=== PATIENT | male | born 1970 | race Caucasian/White ===

== ENCOUNTER 2016-10-21 14:57 | Inpatient (IN) | payer MEDICAID ==
[~2016-10-21] VITALS: Ht 170.2 cm; Wt 72.2 kg
[~2016-10-21 14:57] MED LIST: CHLO25CA9 PO; CYAN10005 PO; GABA100C8 PO; HYDR-3138 PO; HYDR-3144 PO; LIBRIUM PO; LISI-167 PO; LISI-170 PO; LISI2.5T PO; LISINOPRIL; LORA-446 PO; METHADONE; METO25TA35 PO; MORP60CA16 PO; MORPHINE PO; OXYC-229 PO; [UNRECOGNIZED DRUG - CODE] PO
[2016-10-21] MEDS ORDERED: LORazepam 2 MG/ML, 1ML ONE ×4 (15:40→19:15)
[2016-10-21] MEDS: LORazepam 2 MG/ML, 1ML IVPush PRN ×5 (15:44→22:02)
[2016-10-21] MEDS ORDERED: SODIUM CHLORIDE FLUSH 10ML SYR IVF ONE (16:00)
[2016-10-21] MEDS ORDERED: SODIUM CHLORIDE 0.9% 1,000ML IVBOLUS ONE (16:00)
[2016-10-21 16:20] LABS: ASPARTATE AMINO TRANSFERASE 25 U/L (15-37); BLOOD UREA NITROGEN 6 mg/dL (7-18)
[2016-10-21] MEDS ORDERED: SODIUM CHLORIDE FLUSH 10ML SYR IVF PRN (19:30)
[2016-10-21] MEDS ORDERED: LORazepam 2 MG/ML, 1ML IVPush PRN (19:30)
[2016-10-21] MEDS ORDERED: morphine SULFATE 10 MG/ML, 1ML IVPush PRN (20:00)
[2016-10-21] MEDS ORDERED: LORazepam 2 MG/ML, 1ML IV PRN ×2 (20:00)
[2016-10-21] MEDS ORDERED: POLYETHYLENE GLYCOL 17 GM PACKET PO PRN (20:00)
[2016-10-21] MEDS ORDERED: LORazepam 1MG TABLET PO PRN ×2 (20:00)
[2016-10-21] MEDS ORDERED: DOCUSATE 100 MG CAPSULE PO PRN (20:00)
[2016-10-21] MEDS: OXYcodone IR 5MG TABLET PO PRN (22:08)
[2016-10-21] MEDS: ENOXAPARIN 40 MG/0.4 ML SQ SCH (22:09)
[2016-10-21] MEDS: LORazepam 2 MG/ML, 1ML IV PRN (22:09)
[2016-10-21] MEDS: NICOTINE 14MG/24 HR PATCH.TD24 TD SCH (22:10)
[2016-10-21 22:27] VITALS: BP 123/75
[2016-10-21] MEDS: NS + 20MEQ KCL 1,000 ML IV SCH (22:59)
[2016-10-22] MEDS: LORazepam 2 MG/ML, 1ML IV PRN (01:24)
[2016-10-22] MEDS: ACETAMINOPHEN 325 MG TABLET PO PRN (01:27)
[2016-10-22 03:42] VITALS: BP 106/65
[2016-10-22] MEDS: NS + 20MEQ KCL 1,000 ML IV SCH (06:11)
[2016-10-22 07:49] VITALS: BP 119/84
[2016-10-22] MEDS: SENNA/DOCUSATE TABLET PO SCH (09:00)
[2016-10-22] MEDS: FOLIC ACID 1 MG TABLET PO SCH (09:19)
[2016-10-22] MEDS: LORazepam 0.5MG TABLET PO PRN ×3 (09:19→20:20)
[2016-10-22] MEDS: THIAMINE 100MG TABLET PO SCH (09:19)
[2016-10-22] MEDS: MULTIVITAMINS/MINERALS TABLET PO SCH (09:19)
[2016-10-22] MEDS: ONDANSETRON 2MG/ML, 2ML IVPush PRN (09:39)
[2016-10-22] MEDS: BACLOFEN 10 MG TABLET PO SCH ×2 (11:42→20:18)
[2016-10-22 13:59] VITALS: BP 110/85
[2016-10-22] MEDS: OXYcodone IR 5MG TABLET PO PRN (18:07)
[2016-10-22 20:00] VITALS: BP 125/73
[2016-10-22] MEDS ORDERED: LORazepam 1MG TABLET ONE (20:01)
[2016-10-22] MEDS: NICOTINE 14MG/24 HR PATCH.TD24 TD SCH (20:17)
[2016-10-22] MEDS: ENOXAPARIN 40 MG/0.4 ML SQ SCH (20:18)
[2016-10-23] MEDS: LORazepam 0.5MG TABLET PO PRN ×2 (01:02→09:48)
[2016-10-23 02:00] VITALS: BP 142/80
[2016-10-23 07:13] VITALS: BP 122/82
[2016-10-23] MEDS: THIAMINE 100MG TABLET PO SCH (08:08)
[2016-10-23] MEDS: ACETAMINOPHEN 325 MG TABLET PO PRN ×2 (08:08→20:05)
[2016-10-23] MEDS: FOLIC ACID 1 MG TABLET PO SCH (08:08)
[2016-10-23] MEDS: BACLOFEN 10 MG TABLET PO SCH ×2 (08:08→20:04)
[2016-10-23] MEDS: MULTIVITAMINS/MINERALS TABLET PO SCH (08:08)
[2016-10-23] MEDS: SENNA/DOCUSATE TABLET PO SCH (08:09)
[2016-10-23] MEDS: ONDANSETRON 2MG/ML, 2ML IVPush PRN (12:54)
[2016-10-23] MEDS: OXYcodone IR 5MG TABLET PO PRN ×4 (12:54→22:04)
[2016-10-23] MEDS ORDERED: NS + 20MEQ KCL 1,000 ML IV SCH (13:30)
[2016-10-23 16:07] VITALS: BP 120/75
[2016-10-23 20:00] VITALS: BP 130/62
[2016-10-23] MEDS: ENOXAPARIN 40 MG/0.4 ML SQ SCH (20:04)
[2016-10-23] MEDS: NICOTINE 14MG/24 HR PATCH.TD24 TD SCH (20:05)
[2016-10-23] MEDS: LORazepam 1MG TABLET PO PRN (20:13)
[2016-10-23] MEDS ORDERED: DIPHENHYDRAMINE 25 MG CAPSULE PO ONE (22:00)
[2016-10-24 02:00] VITALS: BP 147/79
[2016-10-24] MEDS: OXYcodone IR 5MG TABLET PO PRN ×2 (02:54→08:51)
[2016-10-24 08:53] VITALS: BP 130/74
[2016-10-24] MEDS: THIAMINE 100MG TABLET PO SCH (08:56)
[2016-10-24] MEDS: FOLIC ACID 1 MG TABLET PO SCH (08:56)
[2016-10-24] MEDS: BACLOFEN 10 MG TABLET PO SCH (08:56)
[2016-10-24] MEDS: MULTIVITAMINS/MINERALS TABLET PO SCH (08:56)
[2016-10-24] MEDS: SENNA/DOCUSATE TABLET PO SCH (08:57)
[2016-10-24] MEDS ORDERED: OXYC5TAB3 PO (11:22)
[2016-10-24] MEDS ORDERED: THIA100T6 PO (11:22)
[2016-10-24] MEDS ORDERED: LORA-446 PO (11:22)
[2016-10-24] MEDS ORDERED: FOLI-17 PO (11:22)
[2016-10-24] MEDS ORDERED: MULT-484 PO (11:22)
[2016-10-24 12:17] VITALS: BP 158/83
[2016-10-24] MEDS: LORazepam 1MG TABLET PO PRN (12:28)
== END 2016-10-24 13:05 | disposition home or self-care (01) | DRG 897 ==
LOC: ED 18:47 → EDIP 19:15 → 4WST 20:17
PROVIDERS: ADMIT Family Medicine
DX: F10.239 Alcohol dependence with withdrawal, unspecified (principal); F17.200 Nicotine dependence, unspecified, uncomplicated; I10 Essential (primary) hypertension; Z79.82 Long term (current) use of aspirin; I25.2 Old myocardial infarction; M79.7 Fibromyalgia
CPT/HCPCS: 36415; 71010; 80053; 80307; 85025; 87324; 93005; 93306; 96374; J1650; J2405; J3480; J2060; J7030; Q0163

== ENCOUNTER 2016-11-01 04:11 | Emergency (ER) | payer MEDICAID ==
[~2016-11-01] VITALS: Ht 170.2 cm; Wt 73.1 kg
[~2016-11-01 04:11] MED LIST changes: +FOLI-17 PO; +MULT-484 PO; +OXYC5TAB3 PO; +THIA100T6 PO
[2016-11-01 04:12] VITALS: BP 120/73
== END 2016-11-01 04:52 | disposition left against medical advice (07) ==
LOC: ED 04:46
DX: F10.10 Alcohol abuse, uncomplicated (principal); Z53.21 Procedure and treatment not carried out due to patient leaving prior to being seen by health care provider

== ENCOUNTER 2016-11-03 07:35 | Emergency (ER) | payer MEDICAID ==
[~2016-11-03] VITALS: Ht 170.2 cm; Wt 70.0 kg
[2016-11-03] MEDS ORDERED: ONDANSETRON ODT 4 MG PO ONE (08:30)
[2016-11-03] MEDS ORDERED: ACETAMINOPHEN 325 MG TABLET PO ONE (08:30)
[2016-11-03] MEDS ORDERED: ACETAMINOPHEN 325 MG TABLET ONE (09:08)
[2016-11-03] MEDS ORDERED: ONDANSETRON ODT 4 MG ONE (09:08)
[2016-11-03 09:42] VITALS: BP 110/71
== END 2016-11-03 09:44 | disposition home or self-care (01) ==
LOC: ED 08:42
DX: R42 Dizziness and giddiness (principal); R05 Cough; R51 Headache; R06.00 Dyspnea, unspecified; I11.9 Hypertensive heart disease without heart failure; I25.2 Old myocardial infarction; Z88.6 Allergy status to analgesic agent; F10.20 Alcohol dependence, uncomplicated
CPT/HCPCS: 70450; 99284; Q0162

== ENCOUNTER 2017-04-14 19:45 | Emergency (ER) | payer MEDICAID ==
[~2017-04-14] VITALS: Ht 170.2 cm; Wt 72.8 kg
[~2017-04-14 19:45] MED LIST changes: +GABA-826 PO; -GABA100C8 PO; -HYDR-3138 PO; -HYDR-3144 PO; +HYDR-3237 PO; +HYDR-3245 PO; -OXYC-229 PO; +OXYC-307 PO
[2017-04-14 19:51] VITALS: BP 116/72
== END 2017-04-14 21:53 | disposition home or self-care (01) ==
LOC: ED 21:47
DX: S61.411A Laceration without foreign body of right hand, initial encounter (principal); G89.11 Acute pain due to trauma; I10 Essential (primary) hypertension; I25.2 Old myocardial infarction; X58.XXXA Exposure to other specified factors, initial encounter; Y93.89 Activity, other specified; Y92.89 Other specified places as the place of occurrence of the external cause; Y99.8 Other external cause status
CPT/HCPCS: 12001

== ENCOUNTER 2017-07-06 03:45 | Emergency (ER) | payer MEDICAID ==
[~2017-07-06] VITALS: Ht 170.2 cm; Wt 67.3 kg
[2017-07-06] MEDS ORDERED: ALBUTEROL/IPRATROPIUM 2.5MG/0.5MG, 3 ML ONE (04:21)
[2017-07-06] MEDS ORDERED: ALBUTEROL/IPRATROPIUM 2.5MG/0.5MG, 3 ML NPPB ONE (04:30)
[2017-07-06 05:27] VITALS: BP 110/71
== END 2017-07-06 05:30 | disposition home or self-care (01) ==
LOC: ED 05:15
DX: J44.1 Chronic obstructive pulmonary disease with (acute) exacerbation (principal); J20.8 Acute bronchitis due to other specified organisms; I25.2 Old myocardial infarction; I10 Essential (primary) hypertension
CPT/HCPCS: 71046; 93005; 94640; 99284; J7620

== ENCOUNTER 2017-07-23 15:51 | Emergency (ER) | payer MEDICAID ==
[~2017-07-23] VITALS: Ht 170.2 cm; Wt 73.0 kg
[2017-07-23] MEDS ORDERED: SODIUM CHLORIDE 0.9% 1,000ML IVBOLUS ONE (16:00)
[2017-07-23] MEDS ORDERED: LORazepam 2 MG/ML, 1ML IVPush ONE (16:00)
[2017-07-23 16:37] LABS: BASOPHILS # (AUTO) 0.05 x10^3/uL (0-0.1); BASOPHILS % (AUTO) 1 % (0-1); EOSINOPHILS # (AUTO) 0.13 x10^3/uL (0-0.4); EOSINOPHILS % (AUTO) 2 % (1-7); LYMPHOCYTES # (AUTO) 1.71 x10^3/uL (1-3.4); LYMPHOCYTES % (AUTO) 25 % (22-44); MD NO; MEAN CORPUSCULAR HEMOGLOBIN 30.5 pg (27.5-34.5); MEAN CORPUSCULAR VOLUME 92.4 fL (81-97); MONOCYTES # (AUTO) 0.47 x10^3/uL (0.2-0.8); MONOCYTES % (AUTO) 7 % (2-9); NEUTROPHILS # (AUTO) 4.44 x10^3/uL (1.8-6.8); NEUTROPHILS % (AUTO) 65 % (42-75); PLATELET COUNT 393 x10^3/uL (130-400); RED BLOOD COUNT 4.48 x10^6/uL (4.38-5.82); RED CELL DISTRIBUTION WIDTH 14.7 % (9.4-14.8)
[2017-07-23 16:49] LABS: ALANINE AMINOTRANSFERASE 55 U/L (12-78); ALBUMIN 3.5 g/dL (3.4-5.0); ANION GAP 9 mmol/L (5-15); CALCIUM 8.2 mg/dL (8.5-10.1); CHLORIDE 108 mmol/L (98-107)
[2017-07-23 16:54] LABS: ALKALINE PHOSPHATASE 72 U/L (45-117); BILIRUBIN,TOTAL 0.6 mg/dL (0.2-1.0); CREATININE 0.55 mg/dL (0.7-1.3); TOTAL PROTEIN 6.9 g/dL (6.4-8.2)
[2017-07-23 17:19] LABS: AMPHETAMINE SCREEN, URINE Positive (Negative); BARBITURATE SCREEN, URINE Negative (Negative); BENZODIAZEPINE SCREEN, URINE Negative (Negative); CANNABINOID SCREEN, URINE Negative (Negative); COCAINE SCREEN, URINE Negative (Negative); METHADONE SCREEN, URINE Negative (Negative); OPIATE SCREEN, URINE Negative (Negative)
[2017-07-23 18:01] VITALS: BP 113/67
== END 2017-07-23 18:03 | disposition home or self-care (01) ==
LOC: ED 17:05
DX: F10.220 Alcohol dependence with intoxication, uncomplicated (principal); F15.20 Other stimulant dependence, uncomplicated; J44.9 Chronic obstructive pulmonary disease, unspecified; I25.2 Old myocardial infarction; I10 Essential (primary) hypertension; Z88.8 Allergy status to other drugs, medicaments and biological substances
CPT/HCPCS: 36415; 80053; 80307; 85025; 93970; 99285

== ENCOUNTER 2017-07-24 00:32 | Emergency (ER) | payer MEDICAID ==
[~2017-07-24] VITALS: Ht 172.7 cm; Wt 75.0 kg
[2017-07-24 00:33] VITALS: BP 114/80
[2017-07-24] MEDS ORDERED: ACETAMINOPHEN 325 MG TABLET ONE (03:04)
[2017-07-24] MEDS ORDERED: ACETAMINOPHEN 325 MG TABLET PO ONE (03:30)
== END 2017-07-24 03:18 | disposition home or self-care (01) ==
LOC: ED 01:34
DX: G89.29 Other chronic pain (principal); M79.661 Pain in right lower leg; M79.662 Pain in left lower leg; F15.10 Other stimulant abuse, uncomplicated; F17.200 Nicotine dependence, unspecified, uncomplicated; I10 Essential (primary) hypertension; J44.9 Chronic obstructive pulmonary disease, unspecified; I25.2 Old myocardial infarction
CPT/HCPCS: 99283

== ENCOUNTER 2017-07-24 14:36 | Emergency (ER) | payer MEDICAID ==
[~2017-07-24] VITALS: Ht 170.2 cm; Wt 73.0 kg
[2017-07-24] MEDS ORDERED: THIAMINE 100MG TABLET PO ONE (15:00)
[2017-07-24] MEDS ORDERED: PLEASE ENTER HEIGHT AND WEIGHT MC SCH (15:00)
[2017-07-24] MEDS ORDERED: LORazepam 1MG TABLET PO ONE (17:30)
[2017-07-24 18:15] VITALS: BP 106/70
[2017-07-24] MEDS ORDERED: CHLORDIAZEPOXIDE 25 MG CAPSULE ONE (18:25)
[2017-07-24] MEDS ORDERED: CHLORDIAZEPOXIDE 25 MG CAPSULE PO ONE (18:30)
== END 2017-07-24 19:09 | disposition home or self-care (01) ==
LOC: ED 17:48
DX: F10.220 Alcohol dependence with intoxication, uncomplicated (principal); I25.2 Old myocardial infarction; I10 Essential (primary) hypertension; J44.9 Chronic obstructive pulmonary disease, unspecified
CPT/HCPCS: 93005; 99284

== ENCOUNTER 2017-07-26 18:18 | Emergency (ER) | payer MEDICAID ==
[~2017-07-26] VITALS: Ht 172.7 cm; Wt 80.0 kg
[2017-07-26 18:29] VITALS: BP 140/82
[2017-07-26] MEDS ORDERED: KETOROLAC 30 MG/1 ML ONE (18:33)
[2017-07-26] MEDS ORDERED: KETOROLAC 30 MG/1 ML IM ONE (19:00)
== END 2017-07-26 18:48 | disposition home or self-care (01) ==
LOC: ED 18:42
DX: F10.129 Alcohol abuse with intoxication, unspecified (principal); M79.605 Pain in left leg; M79.604 Pain in right leg; J44.9 Chronic obstructive pulmonary disease, unspecified; I10 Essential (primary) hypertension; I25.2 Old myocardial infarction
CPT/HCPCS: 96372; 99283; J1885

== ENCOUNTER 2018-03-28 21:28 | Emergency (ER) | payer MEDICAID, OTHER ==
[~2018-03-28] VITALS: Ht 170.2 cm; Wt 68.2 kg
[~2018-03-28 21:28] MED LIST changes: -THIA100T6 PO; +THIA100T67 PO
[2018-03-28] MEDS ORDERED: IBUPROFEN 200 MG TABLET PO ONE (22:00)
[2018-03-28] MEDS ORDERED: IBUPROFEN 200 MG TABLET ONE (22:11)
[2018-03-28 22:23] VITALS: BP 103/65
[2018-03-28] MEDS ORDERED: ONDANSETRON ODT 4 MG ONE (22:34)
[2018-03-28] MEDS ORDERED: ONDANSETRON ODT 4 MG PO ONE (23:00)
== END 2018-03-28 22:49 | disposition home or self-care (01) ==
LOC: ED 22:40
DX: S06.0X0A Concussion without loss of consciousness, initial encounter (principal); F10.220 Alcohol dependence with intoxication, uncomplicated; F10.121 Alcohol abuse with intoxication delirium; J44.9 Chronic obstructive pulmonary disease, unspecified; I25.2 Old myocardial infarction; I10 Essential (primary) hypertension; X58.XXXA Exposure to other specified factors, initial encounter; Y93.89 Activity, other specified; Y92.89 Other specified places as the place of occurrence of the external cause; Y99.8 Other external cause status
CPT/HCPCS: 70450; 99284; Q0162

== ENCOUNTER 2018-03-31 12:25 | Emergency (ER) | payer MEDICAID, OTHER ==
[~2018-03-31] VITALS: Ht 170.2 cm; Wt 70.0 kg
[2018-03-31] MEDS ORDERED: GABA300C10 PO (12:38)
[2018-03-31] MEDS ORDERED: TRAM50TA2 PO (12:38)
[2018-03-31 12:50] VITALS: BP 112/68
[2018-03-31] MEDS ORDERED: SODIUM CHLORIDE FLUSH 10ML SYR IVF ONE (13:00)
[2018-03-31 13:21] LABS: MICROSCOPIC NOT IND
[2018-03-31 13:22] LABS: CULTURE INDICATED? NO
[2018-03-31 13:27] LABS: MEAN CORPUSCULAR HEMOGLOBIN 33.9 pg (27.5-34.5); MEAN CORPUSCULAR HGB CONC 34.4 g/dL (33.2-36.2); MEAN CORPUSCULAR VOLUME 98.6 fL (81-97); RED BLOOD COUNT 3.77 x10^6/uL (4.38-5.82); RED CELL DISTRIBUTION WIDTH 16.9 % (9.4-14.8)
[2018-03-31 13:28] LABS: MD YES; MEAN PLATELET VOLUME 7.1 fL (7.4-10.4); PLATELET COUNT 559 x10^3/uL (130-400)
[2018-03-31 13:31] LABS: LYMPH#(MANUAL) 1.38 x10^3/uL (1-3.4); LYMPHS% (MANUAL) 26 % (22-44); MONOS#(MANUAL) 1.01 x10^3/uL (0.3-2.7); MONOS% (MANUAL) 19 % (2-9); SEG#(MANUAL) 2.92 x10^3/uL (1.8-6.8); SEGS% (MANUAL) 55 % (42-75)
[2018-03-31 13:32] LABS: ALANINE AMINOTRANSFERASE 58 U/L (12-78); ALBUMIN 3.5 g/dL (3.4-5.0); ANION GAP 7 mmol/L (5-15); ANISOCYTOSIS 1+; CALCIUM 8.6 mg/dL (8.5-10.1); CHLORIDE 104 mmol/L (98-107); CREATININE 0.73 mg/dL (0.7-1.3)
[2018-03-31 13:33] LABS: AMPHETAMINE SCREEN, URINE Negative (Negative); BARBITURATE SCREEN, URINE Positive (Negative); BENZODIAZEPINE SCREEN, URINE Negative (Negative); CANNABINOID SCREEN, URINE Negative (Negative); COCAINE SCREEN, URINE Negative (Negative); METHADONE SCREEN, URINE Negative (Negative); OPIATE SCREEN, URINE Negative (Negative)
[2018-03-31 13:33] LABS: <PLATELET ESTIMATE> INCREASED; <PLT MORPHOLOGY> NORMAL PLT MORPH
[2018-03-31 13:35] LABS: ALKALINE PHOSPHATASE 88 U/L (45-117); BILIRUBIN,TOTAL 0.2 mg/dL (0.2-1.0); TOTAL PROTEIN 7.2 g/dL (6.4-8.2)
== END 2018-03-31 13:58 | disposition left against medical advice (07) ==
LOC: ED 13:52
DX: F10.129 Alcohol abuse with intoxication, unspecified (principal); G44.319 Acute post-traumatic headache, not intractable
CPT/HCPCS: 36415; 80053; 80307; 81003; 85025; 99285

== ENCOUNTER 2018-04-08 23:10 | Emergency (ER) | payer MEDICAID ==
[~2018-04-08] VITALS: Ht 170.2 cm; Wt 67.8 kg
[~2018-04-08 23:10] MED LIST changes: +GABA300C10 PO; +TRAM50TA2 PO
[2018-04-09 03:21] VITALS: BP 139/81
== END 2018-04-09 03:23 | disposition home or self-care (01) ==
LOC: ED 23:34
DX: F10.229 Alcohol dependence with intoxication, unspecified (principal); I25.2 Old myocardial infarction; F32.9 Major depressive disorder, single episode, unspecified; I11.9 Hypertensive heart disease without heart failure; I51.9 Heart disease, unspecified; J44.9 Chronic obstructive pulmonary disease, unspecified; Y90.9 Presence of alcohol in blood, level not specified
CPT/HCPCS: 99283

== ENCOUNTER 2018-04-09 20:31 | Emergency (ER) | payer MEDICAID ==
[~2018-04-09] VITALS: Ht 177.8 cm; Wt 60.0 kg
[2018-04-09 20:50] LABS: BASOPHILS # (AUTO) 0.12 x10^3/uL (0-0.1); BASOPHILS % (AUTO) 2 % (0-1); EOSINOPHILS # (AUTO) 0.06 x10^3/uL (0-0.4); EOSINOPHILS % (AUTO) 1 % (1-7); LYMPHOCYTES # (AUTO) 2.49 x10^3/uL (1-3.4); LYMPHOCYTES % (AUTO) 37 % (22-44); MD NO; MEAN CORPUSCULAR HEMOGLOBIN 33.4 pg (27.5-34.5); MEAN CORPUSCULAR HGB CONC 34.3 g/dL (33.2-36.2); MEAN CORPUSCULAR VOLUME 97.5 fL (81-97); MEAN PLATELET VOLUME 6.8 fL (7.4-10.4); MONOCYTES # (AUTO) 0.67 x10^3/uL (0.2-0.8); MONOCYTES % (AUTO) 10 % (2-9); NEUTROPHILS # (AUTO) 3.42 x10^3/uL (1.8-6.8); NEUTROPHILS % (AUTO) 51 % (42-75); PLATELET COUNT 573 x10^3/uL (130-400); RED BLOOD COUNT 3.85 x10^6/uL (4.38-5.82); RED CELL DISTRIBUTION WIDTH 16.5 % (9.4-14.8)
[2018-04-09 21:00] LABS: ALBUMIN 3.4 g/dL (3.4-5.0); ANION GAP 14 mmol/L (5-15); CALCIUM 8.2 mg/dL (8.5-10.1); CHLORIDE 104 mmol/L (98-107)
[2018-04-09 21:02] LABS: SALICYLATE LEVEL < 1.7 mg/dL (2.8-20.0)
[2018-04-09 21:03] LABS: ALANINE AMINOTRANSFERASE 54 U/L (12-78); ALKALINE PHOSPHATASE 67 U/L (45-117); BILIRUBIN,TOTAL 0.1 mg/dL (0.2-1.0); TOTAL PROTEIN 6.9 g/dL (6.4-8.2)
[2018-04-09 21:06] LABS: ACETAMINOPHEN < 2 mcg/mL (10-30)
[2018-04-09 21:26] LABS: AMPHETAMINE SCREEN, URINE Negative (Negative); BARBITURATE SCREEN, URINE Positive (Negative); BENZODIAZEPINE SCREEN, URINE Positive (Negative); CANNABINOID SCREEN, URINE Negative (Negative); COCAINE SCREEN, URINE Negative (Negative); METHADONE SCREEN, URINE Negative (Negative); OPIATE SCREEN, URINE Negative (Negative)
[2018-04-10 02:04] VITALS: BP 134/70
== END 2018-04-10 02:24 | disposition home or self-care (01) ==
LOC: ED 21:45
DX: F10.120 Alcohol abuse with intoxication, uncomplicated (principal); F14.10 Cocaine abuse, uncomplicated; Z00.00 Encounter for general adult medical examination without abnormal findings; J44.9 Chronic obstructive pulmonary disease, unspecified; I25.2 Old myocardial infarction; I10 Essential (primary) hypertension
CPT/HCPCS: 36415; 80053; 80307; 80329; 85025; 99284; G0480

== ENCOUNTER 2018-04-11 03:13 | Emergency (ER) | payer MEDICAID ==
[~2018-04-11] VITALS: Ht 170.2 cm; Wt 66.9 kg
[2018-04-11 03:17] VITALS: BP 117/73
== END 2018-04-11 03:42 | disposition home or self-care (01) ==
LOC: ED 03:37
DX: F10.220 Alcohol dependence with intoxication, uncomplicated (principal); I10 Essential (primary) hypertension; I25.2 Old myocardial infarction; J44.9 Chronic obstructive pulmonary disease, unspecified; Z72.9 Problem related to lifestyle, unspecified; F17.200 Nicotine dependence, unspecified, uncomplicated
CPT/HCPCS: 99281

== ENCOUNTER 2018-04-12 19:52 | Emergency (ER) | payer MEDICAID ==
[~2018-04-12] VITALS: Ht 170.2 cm; Wt 71.0 kg
[2018-04-12 19:56] VITALS: BP 130/82
== END 2018-04-12 21:00 | disposition home or self-care (01) ==
LOC: ED 20:54
DX: F15.10 Other stimulant abuse, uncomplicated (principal); F10.129 Alcohol abuse with intoxication, unspecified; J44.9 Chronic obstructive pulmonary disease, unspecified; I25.2 Old myocardial infarction
CPT/HCPCS: 99283

== ENCOUNTER 2018-04-19 23:53 | Emergency (ER) | payer MEDICAID ==
[~2018-04-19] VITALS: Ht 170.2 cm; Wt 71.8 kg
[2018-04-20 00:13] VITALS: BP 137/82
[2018-04-20] MEDS ORDERED: ONDANSETRON 2MG/ML, 2ML IVPush ONE (00:30)
[2018-04-20] MEDS ORDERED: SODIUM CHLORIDE 0.9% 1,000ML IVBOLUS ONE (00:30)
[2018-04-20 00:51] LABS: BASOPHILS # (AUTO) 0.12 x10^3/uL (0-0.1); BASOPHILS % (AUTO) 2 % (0-1); EOSINOPHILS # (AUTO) 0.15 x10^3/uL (0-0.4); EOSINOPHILS % (AUTO) 2 % (1-7); LYMPHOCYTES # (AUTO) 2.22 x10^3/uL (1-3.4); LYMPHOCYTES % (AUTO) 27 % (22-44); MD NO; MEAN CORPUSCULAR HEMOGLOBIN 33.3 pg (27.5-34.5); MEAN CORPUSCULAR HGB CONC 34.1 g/dL (33.2-36.2); MEAN CORPUSCULAR VOLUME 97.7 fL (81-97); MEAN PLATELET VOLUME 7.4 fL (7.4-10.4); MONOCYTES # (AUTO) 0.87 x10^3/uL (0.2-0.8); MONOCYTES % (AUTO) 11 % (2-9); NEUTROPHILS # (AUTO) 4.74 x10^3/uL (1.8-6.8); NEUTROPHILS % (AUTO) 59 % (42-75); PLATELET COUNT 328 x10^3/uL (130-400); RED BLOOD COUNT 3.96 x10^6/uL (4.38-5.82); RED CELL DISTRIBUTION WIDTH 16.1 % (9.4-14.8)
[2018-04-20 01:04] LABS: ALANINE AMINOTRANSFERASE 31 U/L (12-78); ALBUMIN 3.7 g/dL (3.4-5.0); ANION GAP 9 mmol/L (5-15); CALCIUM 8.7 mg/dL (8.5-10.1); CHLORIDE 106 mmol/L (98-107); CREATININE 0.71 mg/dL (0.7-1.3)
[2018-04-20 01:06] LABS: ALKALINE PHOSPHATASE 61 U/L (45-117); BILIRUBIN,TOTAL 0.1 mg/dL (0.2-1.0); TOTAL PROTEIN 7.2 g/dL (6.4-8.2)
[2018-04-20 01:07] LABS: TROPONIN I < 0.015 ng/mL (0.000-0.045)
[2018-04-20] MEDS ORDERED: ONDANSETRON 2MG/ML, 2ML ONE (01:55)
== END 2018-04-20 02:29 | disposition home or self-care (01) ==
LOC: ED 04-20 00:22
DX: R10.13 Epigastric pain (principal); I10 Essential (primary) hypertension; J44.9 Chronic obstructive pulmonary disease, unspecified; I25.2 Old myocardial infarction; F17.200 Nicotine dependence, unspecified, uncomplicated
CPT/HCPCS: 36415; 71045; 80053; 83690; 84484; 85025; 96374; 99285; J2405; J7030

== ENCOUNTER 2018-04-28 08:33 | Emergency (ER) | payer MEDICAID ==
[~2018-04-28] VITALS: Ht 170.2 cm; Wt 73.0 kg
[2018-04-28] MEDS ORDERED: ONDANSETRON ODT 4 MG ONE (10:08)
[2018-04-28 10:23] VITALS: BP 115/68
[2018-04-28] MEDS ORDERED: ONDANSETRON ODT 4 MG PO ONE (10:30)
== END 2018-04-28 10:25 | disposition home or self-care (01) ==
LOC: ED 09:50
DX: S16.1XXA Strain of muscle, fascia and tendon at neck level, initial encounter (principal); S09.90XA Unspecified injury of head, initial encounter; J44.9 Chronic obstructive pulmonary disease, unspecified; I25.2 Old myocardial infarction; I10 Essential (primary) hypertension; F32.9 Major depressive disorder, single episode, unspecified; Y08.89XA Assault by other specified means, initial encounter; Y93.89 Activity, other specified; Y92.410 Unspecified street and highway as the place of occurrence of the external cause; Y99.8 Other external cause status
CPT/HCPCS: 70450; 72125; 99284; Q0162

== ENCOUNTER 2018-05-04 07:56 | Emergency (ER) | payer MEDICAID ==
[~2018-05-04] VITALS: Ht 172.7 cm; Wt 68.8 kg
[2018-05-04 09:29] VITALS: BP 113/71
[2018-05-04] MEDS ORDERED: ONDANSETRON ODT 4 MG ONE (09:56)
[2018-05-04] MEDS ORDERED: ONDANSETRON ODT 4 MG PO ONE (10:00)
== END 2018-05-04 10:01 | disposition home or self-care (01) ==
LOC: ED 08:25
DX: S09.90XA Unspecified injury of head, initial encounter (principal); I10 Essential (primary) hypertension; I25.2 Old myocardial infarction; L44.9 Papulosquamous disorder, unspecified; X58.XXXA Exposure to other specified factors, initial encounter; Y93.89 Activity, other specified; Y92.89 Other specified places as the place of occurrence of the external cause; Y99.8 Other external cause status
CPT/HCPCS: 70450; 99284; Q0162

== ENCOUNTER 2018-05-05 07:45 | Inpatient (IN) | payer MEDICAID ==
[~2018-05-05] VITALS: Ht 172.7 cm; Wt 76.3 kg
[2018-05-05] MEDS ORDERED: SODIUM CHLORIDE 0.9% 1,000 ML IV ONE ×2 (08:02→11:34)
[2018-05-05] MEDS ORDERED: ONDANSETRON 2MG/ML, 2ML ONE ×2 (08:17→08:59)
[2018-05-05] MEDS ORDERED: LORazepam 2 MG/ML, 1ML ONE ×3 (08:17→11:18)
[2018-05-05] MEDS: LORazepam 2 MG/ML, 1ML IVPush PRN ×3 (08:23→11:22)
[2018-05-05 08:30] LABS: BASOPHILS # (AUTO) 0.02 x10^3/uL (0-0.1); BASOPHILS % (AUTO) 0 % (0-1); EOSINOPHILS # (AUTO) 0.02 x10^3/uL (0-0.4); EOSINOPHILS % (AUTO) 0 % (1-7); LYMPHOCYTES # (AUTO) 0.64 x10^3/uL (1-3.4); LYMPHOCYTES % (AUTO) 6 % (22-44); MD NO; MEAN CORPUSCULAR HEMOGLOBIN 32.2 pg (27.5-34.5); MEAN CORPUSCULAR HGB CONC 33.5 g/dL (33.2-36.2); MEAN CORPUSCULAR VOLUME 96.3 fL (81-97); MEAN PLATELET VOLUME 7.6 fL (7.4-10.4); MONOCYTES % (AUTO) 6 % (2-9); NEUTROPHILS # (AUTO) 9.84 x10^3/uL (1.8-6.8); NEUTROPHILS % (AUTO) 88 % (42-75); PLATELET COUNT 372 x10^3/uL (130-400); RED CELL DISTRIBUTION WIDTH 16.5 % (9.4-14.8)
[2018-05-05] MEDS ORDERED: ONDANSETRON 2MG/ML, 2ML IVP ONE (08:30)
[2018-05-05] MEDS ORDERED: ONDANSETRON 2MG/ML, 2ML IVPush ONE ×2 (08:30→09:00)
[2018-05-05] MEDS ORDERED: SODIUM CHLORIDE FLUSH 10ML SYR IVF ONE (08:30)
[2018-05-05] MEDS ORDERED: SODIUM CHLORIDE 0.9% 1,000ML IVBOLUS ONE (08:30)
[2018-05-05 08:40] LABS: RAPID INFLUENZA A Negative (Negative); RAPID INFLUENZA B Negative (Negative)
[2018-05-05 08:41] LABS: ALANINE AMINOTRANSFERASE 72 U/L (12-78); ALBUMIN 3.9 g/dL (3.4-5.0); ANION GAP 9 mmol/L (5-15); CALCIUM 8.6 mg/dL (8.5-10.1); CHLORIDE 106 mmol/L (98-107); CREATININE 0.71 mg/dL (0.7-1.3)
[2018-05-05 08:46] LABS: ALKALINE PHOSPHATASE 93 U/L (45-117); BILIRUBIN,TOTAL 0.9 mg/dL (0.2-1.0); TOTAL PROTEIN 7.2 g/dL (6.4-8.2); TROPONIN I < 0.015 ng/mL (0.000-0.045)
[2018-05-05 10:49] LABS: MICROSCOPIC NOT IND
[2018-05-05 10:53] LABS: CULTURE INDICATED? NO
[2018-05-05 11:02] LABS: AMPHETAMINE SCREEN, URINE Negative (Negative); BARBITURATE SCREEN, URINE Positive (Negative); BENZODIAZEPINE SCREEN, URINE Positive (Negative); CANNABINOID SCREEN, URINE Negative (Negative); COCAINE SCREEN, URINE Negative (Negative); METHADONE SCREEN, URINE Negative (Negative); OPIATE SCREEN, URINE Negative (Negative)
[2018-05-05] MEDS ORDERED: SODIUM CHLORIDE FLUSH 10ML SYR IVF PRN (12:00)
[2018-05-05 12:30] VITALS: BP 116/70
[2018-05-05] MEDS ORDERED: LABETALOL 5MG/ML, 20ML IVPush PRN (12:30)
[2018-05-05] MEDS ORDERED: LORazepam 1MG TABLET PO PRN ×2 (12:30)
[2018-05-05] MEDS ORDERED: hydrALAzine 20 MG/ML, 1ML IVPush PRN (12:30)
[2018-05-05] MEDS: FOLIC ACID 1 MG TABLET PO SCH (12:30)
[2018-05-05] MEDS ORDERED: ENALAPRILAT 1.25 MG/ML, 2ML IVPush PRN (12:30)
[2018-05-05] MEDS ORDERED: BISACODYL 10 MG SUPP PR PRN (12:30)
[2018-05-05] MEDS ORDERED: POLYETHYLENE GLYCOL 17 GM PACKET PO PRN (12:30)
[2018-05-05] MEDS ORDERED: DOCUSATE 100 MG CAPSULE PO PRN (12:30)
[2018-05-05] MEDS: THIAMINE 100MG TABLET PO SCH (13:05)
[2018-05-05] MEDS: MULTIVITAMIN 1 TABLET PO SCH (13:05)
[2018-05-05] MEDS: NICOTINE 21 MG/24 HR PATCH.TD24 TD SCH (13:05)
[2018-05-05] MEDS: LORazepam 1MG TABLET PO PRN ×4 (13:05→21:02)
[2018-05-05 13:27] LABS: INTERNATIONAL NORMALIZED RATIO 0.99 (0.93-1.1); PROTHROMBIN TIME 10.5 Seconds (9.6-11.5)
[2018-05-05 13:34] LABS: FREE T4 (FREE THYROXINE) 0.81 ng/dL (0.76-1.46); TROPONIN I < 0.015 ng/mL (0.000-0.045)
[2018-05-05 14:00] LABS: CLOSTRIDIUM DIFFICILE ANTIGEN NEGATIVE; CLOSTRIDIUM DIFFICILE TOXIN NEGATIVE (Negative)
[2018-05-05] MEDS ORDERED: CHLORDIAZEPOXIDE 10 MG CAPSULE ONE (14:25)
[2018-05-05] MEDS: CHLORDIAZEPOXIDE 10 MG CAPSULE PO SCH ×3 (14:29→20:06)
[2018-05-05] MEDS: AZITHROMYCIN 500 MG in SODIUM CHLORIDE 0.9% 250 ML IV SCH (14:29)
[2018-05-05] MEDS: NS + 20MEQ KCL 1,000 ML IV SCH (14:29)
[2018-05-05] MEDS ORDERED: CHLORDIAZEPOXIDE 10 MG CAPSULE PO SCH (16:00)
[2018-05-05] MEDS: GABAPENTIN 300 MG CAPSULE PO SCH ×2 (16:01→20:06)
[2018-05-05 18:07] LABS: TROPONIN I < 0.015 ng/mL (0.000-0.045)
[2018-05-05 20:00] VITALS: BP 123/71
[2018-05-05 20:01] VITALS: BP 111/72
[2018-05-05 20:02] VITALS: BP 102/73
[2018-05-05] MEDS: PANTOPRAZOLE 40 MG IV IVPush SCH (20:05)
[2018-05-05] MEDS: ACETAMINOPHEN 325 MG TABLET PO PRN (20:06)
[2018-05-05] MEDS: SODIUM CHLORIDE NASAL SPRAY 45ML BOTTLE NAS PRN (20:07)
[2018-05-05] MEDS ORDERED: FAMOTIDINE 20 MG/2 ML IVPush SCH (21:00)
[2018-05-05] MEDS: GUAIFENESIN/DM 200-20MG, 10ML UDC PO PRN (21:02)
[2018-05-05] MEDS: ONDANSETRON ODT 4 MG PO PRN (21:02)
[2018-05-06 00:25] VITALS: BP 121/67
[2018-05-06] MEDS: NS + 20MEQ KCL 1,000 ML IV SCH ×3 (00:27→21:15)
[2018-05-06] MEDS: ONDANSETRON ODT 4 MG PO PRN (01:29)
[2018-05-06] MEDS: ACETAMINOPHEN 325 MG TABLET PO PRN ×5 (01:29→20:51)
[2018-05-06] MEDS: LORazepam 1MG TABLET PO PRN ×6 (01:29→21:16)
[2018-05-06] MEDS: SODIUM CHLORIDE NASAL SPRAY 45ML BOTTLE NAS PRN ×5 (01:30→20:50)
[2018-05-06] MEDS: GUAIFENESIN/DM 200-20MG, 10ML UDC PO PRN ×3 (03:55→23:08)
[2018-05-06 04:49] LABS: BASOPHILS # (AUTO) 0.03 x10^3/uL (0-0.1); BASOPHILS % (AUTO) 0 % (0-1); EOSINOPHILS # (AUTO) 0.16 x10^3/uL (0-0.4); EOSINOPHILS % (AUTO) 2 % (1-7); LYMPHOCYTES # (AUTO) 1.47 x10^3/uL (1-3.4); LYMPHOCYTES % (AUTO) 18 % (22-44); MD NO; MEAN CORPUSCULAR HEMOGLOBIN 32.7 pg (27.5-34.5); MEAN CORPUSCULAR HGB CONC 33.5 g/dL (33.2-36.2); MEAN CORPUSCULAR VOLUME 97.7 fL (81-97); MEAN PLATELET VOLUME 7.9 fL (7.4-10.4); MONOCYTES # (AUTO) 0.71 x10^3/uL (0.2-0.8); MONOCYTES % (AUTO) 8 % (2-9); NEUTROPHILS # (AUTO) 5.98 x10^3/uL (1.8-6.8); NEUTROPHILS % (AUTO) 72 % (42-75); PLATELET COUNT 310 x10^3/uL (130-400); RED BLOOD COUNT 3.77 x10^6/uL (4.38-5.82)
[2018-05-06 04:57] LABS: ALANINE AMINOTRANSFERASE 57 U/L (12-78); ANION GAP 8 mmol/L (5-15); CHLORIDE 113 mmol/L (98-107)
[2018-05-06 04:59] LABS: ALKALINE PHOSPHATASE 78 U/L (45-117); BILIRUBIN,TOTAL 0.7 mg/dL (0.2-1.0); TOTAL PROTEIN 6.2 g/dL (6.4-8.2)
[2018-05-06 07:29] VITALS: BP 101/62
[2018-05-06] MEDS: CHLORDIAZEPOXIDE 25 MG CAPSULE PO SCH ×3 (09:21→20:49)
[2018-05-06] MEDS: FOLIC ACID 1 MG TABLET PO SCH (09:21)
[2018-05-06] MEDS: MULTIVITAMIN 1 TABLET PO SCH (09:21)
[2018-05-06] MEDS: GABAPENTIN 300 MG CAPSULE PO SCH ×3 (09:21→20:49)
[2018-05-06] MEDS: THIAMINE 100MG TABLET PO SCH (09:21)
[2018-05-06] MEDS: PANTOPRAZOLE 40 MG IV IVPush SCH ×2 (09:22→20:49)
[2018-05-06 12:20] VITALS: BP 121/76
[2018-05-06 12:26] VITALS: BP 117/73
[2018-05-06 12:29] VITALS: BP 123/78
[2018-05-06] MEDS: NICOTINE 21 MG/24 HR PATCH.TD24 TD SCH (13:03)
[2018-05-06] MEDS: AZITHROMYCIN 500 MG in SODIUM CHLORIDE 0.9% 250 ML IV SCH (13:03)
[2018-05-06] MEDS ORDERED: MAGNESIUM SULFATE 1 GM in SODIUM CHLORIDE 0.9% 50 ML IV ONE (13:30)
[2018-05-06 15:31] LABS: OCCULT BLOOD NEGATIVE (NEGATIVE)
[2018-05-06 17:15] LABS: STOOL FOR LEUKOCYTES NONE SEEN (NEGATIVE)
[2018-05-06 20:00] VITALS: BP 144/84
[2018-05-07 02:00] VITALS: BP 144/85
[2018-05-07] MEDS: NS + 20MEQ KCL 1,000 ML IV SCH ×2 (03:56→14:26)
[2018-05-07 04:12] LABS: ALBUMIN 2.9 g/dL (3.4-5.0); ANION GAP 5 mmol/L (5-15); BASOPHILS # (AUTO) 0.06 x10^3/uL (0-0.1); BASOPHILS % (AUTO) 1 % (0-1); CALCIUM 7.8 mg/dL (8.5-10.1); CHLORIDE 113 mmol/L (98-107); EOSINOPHILS # (AUTO) 0.17 x10^3/uL (0-0.4); EOSINOPHILS % (AUTO) 2 % (1-7); LYMPHOCYTES # (AUTO) 1.89 x10^3/uL (1-3.4); LYMPHOCYTES % (AUTO) 23 % (22-44); MD NO; MEAN CORPUSCULAR HEMOGLOBIN 32.1 pg (27.5-34.5); MEAN CORPUSCULAR HGB CONC 32.8 g/dL (33.2-36.2); MEAN CORPUSCULAR VOLUME 98.1 fL (81-97); MEAN PLATELET VOLUME 8.1 fL (7.4-10.4); MONOCYTES # (AUTO) 0.72 x10^3/uL (0.2-0.8); MONOCYTES % (AUTO) 9 % (2-9); NEUTROPHILS # (AUTO) 5.42 x10^3/uL (1.8-6.8); NEUTROPHILS % (AUTO) 66 % (42-75); PLATELET COUNT 296 x10^3/uL (130-400); RED BLOOD COUNT 3.75 x10^6/uL (4.38-5.82); RED CELL DISTRIBUTION WIDTH 16.6 % (9.4-14.8)
[2018-05-07] MEDS: ACETAMINOPHEN 325 MG TABLET PO PRN ×3 (05:45→20:48)
[2018-05-07] MEDS: LORazepam 1MG TABLET PO PRN ×4 (05:45→20:48)
[2018-05-07 07:57] VITALS: BP 136/87
[2018-05-07] MEDS: FOLIC ACID 1 MG TABLET PO SCH (09:00)
[2018-05-07] MEDS: PANTOPRAZOLE 40 MG IV IVPush SCH ×2 (09:46→20:48)
[2018-05-07] MEDS: CHLORDIAZEPOXIDE 25 MG CAPSULE PO SCH ×3 (09:47→20:48)
[2018-05-07] MEDS: THIAMINE 100MG TABLET PO SCH (09:47)
[2018-05-07] MEDS: SODIUM CHLORIDE NASAL SPRAY 45ML BOTTLE NAS PRN ×3 (09:47→20:51)
[2018-05-07] MEDS: GABAPENTIN 300 MG CAPSULE PO SCH ×3 (09:47→20:48)
[2018-05-07] MEDS: MULTIVITAMIN 1 TABLET PO SCH (09:48)
[2018-05-07] MEDS: NICOTINE 21 MG/24 HR PATCH.TD24 TD SCH (13:12)
[2018-05-07] MEDS: AZITHROMYCIN 500 MG in SODIUM CHLORIDE 0.9% 250 ML IV SCH (13:13)
[2018-05-07 14:33] VITALS: BP 121/82
[2018-05-07] MEDS: ONDANSETRON ODT 4 MG PO PRN (15:25)
[2018-05-07] MEDS ORDERED: POTASSIUM CHLORIDE 20 MEQ, MAGNESIUM SULFATE 1 GM, FOLIC ACID 1 MG, THIAMINE 200 MG, MV... IV SCH (17:00)
[2018-05-07] MEDS: SODIUM CHLORIDE 0.45% 1,000 ML IV SCH (17:00)
[2018-05-07 19:13] VITALS: BP 128/88
[2018-05-08 02:29] VITALS: BP 113/75
[2018-05-08] MEDS: LORazepam 0.5MG TABLET PO PRN (02:42)
[2018-05-08] MEDS: ACETAMINOPHEN 325 MG TABLET PO PRN ×3 (02:43→19:59)
[2018-05-08] MEDS: ONDANSETRON ODT 4 MG PO PRN ×2 (02:43→19:58)
[2018-05-08] MEDS: SODIUM CHLORIDE 0.45% 1,000 ML IV SCH ×3 (05:07→22:25)
[2018-05-08 05:59] LABS: BASOPHILS # (AUTO) 0.02 x10^3/uL (0-0.1); BASOPHILS % (AUTO) 0 % (0-1); EOSINOPHILS # (AUTO) 0.17 x10^3/uL (0-0.4); EOSINOPHILS % (AUTO) 2 % (1-7); LYMPHOCYTES % (AUTO) 16 % (22-44); MD NO; MEAN CORPUSCULAR HEMOGLOBIN 33.6 pg (27.5-34.5); MEAN CORPUSCULAR HGB CONC 33.8 g/dL (33.2-36.2); MEAN CORPUSCULAR VOLUME 99.3 fL (81-97); MEAN PLATELET VOLUME 7.8 fL (7.4-10.4); MONOCYTES # (AUTO) 0.63 x10^3/uL (0.2-0.8); MONOCYTES % (AUTO) 8 % (2-9); NEUTROPHILS # (AUTO) 5.59 x10^3/uL (1.8-6.8); NEUTROPHILS % (AUTO) 74 % (42-75); PLATELET COUNT 268 x10^3/uL (130-400); RED BLOOD COUNT 3.72 x10^6/uL (4.38-5.82); RED CELL DISTRIBUTION WIDTH 17.2 % (9.4-14.8)
[2018-05-08 06:05] LABS: ALANINE AMINOTRANSFERASE 43 U/L (12-78); ANION GAP 7 mmol/L (5-15); CALCIUM 8.4 mg/dL (8.5-10.1); CHLORIDE 109 mmol/L (98-107); CREATININE 0.64 mg/dL (0.7-1.3)
[2018-05-08 06:09] LABS: ALKALINE PHOSPHATASE 70 U/L (45-117); BILIRUBIN,TOTAL 0.3 mg/dL (0.2-1.0)
[2018-05-08 06:28] VITALS: BP 106/71
[2018-05-08] MEDS: FOLIC ACID 1 MG TABLET PO SCH (09:00)
[2018-05-08] MEDS: MULTIVITAMIN 1 TABLET PO SCH (09:02)
[2018-05-08] MEDS: PANTOPRAZOLE 40 MG IV IVPush SCH (09:03)
[2018-05-08] MEDS: CHLORDIAZEPOXIDE 25 MG CAPSULE PO SCH ×2 (09:03→19:58)
[2018-05-08] MEDS: GABAPENTIN 300 MG CAPSULE PO SCH ×3 (09:03→19:58)
[2018-05-08] MEDS: LORazepam 1MG TABLET PO PRN ×3 (10:07→19:59)
[2018-05-08] MEDS: AZITHROMYCIN 500 MG in SODIUM CHLORIDE 0.9% 250 ML IV SCH (12:49)
[2018-05-08] MEDS: NICOTINE 21 MG/24 HR PATCH.TD24 TD SCH (12:49)
[2018-05-08 12:53] VITALS: BP 114/79
[2018-05-08] MEDS: LIDODERM 5% PATCH TD SCH (13:30)
[2018-05-08] MEDS: PANTOPROZOLE 40MG TABLET PO SCH (19:59)
[2018-05-08 20:00] VITALS: BP 145/76
[2018-05-09 02:00] VITALS: BP 102/66
[2018-05-09] MEDS: ACETAMINOPHEN 325 MG TABLET PO PRN ×3 (04:10→14:04)
[2018-05-09] MEDS: LORazepam 1MG TABLET PO PRN ×2 (04:11→12:38)
[2018-05-09] MEDS: SODIUM CHLORIDE 0.45% 1,000 ML IV SCH ×3 (06:13→21:18)
[2018-05-09 06:18] LABS: CALCIUM 9.1 mg/dL (8.5-10.1); CHLORIDE 106 mmol/L (98-107)
[2018-05-09 06:25] LABS: ALANINE AMINOTRANSFERASE 41 U/L (12-78); ALBUMIN 3.3 g/dL (3.4-5.0); ALKALINE PHOSPHATASE 70 U/L (45-117); ANION GAP 7 mmol/L (5-15); BILIRUBIN,TOTAL 0.3 mg/dL (0.2-1.0); CREATININE 0.71 mg/dL (0.7-1.3); TOTAL PROTEIN 6.6 g/dL (6.4-8.2)
[2018-05-09 06:33] VITALS: BP 100/62
[2018-05-09 06:59] LABS: BASOPHILS # (AUTO) 0.03 x10^3/uL (0-0.1); BASOPHILS % (AUTO) 1 % (0-1); EOSINOPHILS # (AUTO) 0.13 x10^3/uL (0-0.4); EOSINOPHILS % (AUTO) 2 % (1-7); LYMPHOCYTES # (AUTO) 1.91 x10^3/uL (1-3.4); LYMPHOCYTES % (AUTO) 29 % (22-44); MD NO; MEAN CORPUSCULAR HEMOGLOBIN 33.7 pg (27.5-34.5); MEAN CORPUSCULAR HGB CONC 33.8 g/dL (33.2-36.2); MEAN CORPUSCULAR VOLUME 99.8 fL (81-97); MEAN PLATELET VOLUME 8.2 fL (7.4-10.4); MONOCYTES # (AUTO) 0.77 x10^3/uL (0.2-0.8); MONOCYTES % (AUTO) 11 % (2-9); NEUTROPHILS # (AUTO) 3.87 x10^3/uL (1.8-6.8); NEUTROPHILS % (AUTO) 58 % (42-75); PLATELET COUNT 265 x10^3/uL (130-400); RED BLOOD COUNT 4.02 x10^6/uL (4.38-5.82); RED CELL DISTRIBUTION WIDTH 17.7 % (9.4-14.8)
[2018-05-09] MEDS: GABAPENTIN 300 MG CAPSULE PO SCH ×3 (08:00→21:17)
[2018-05-09] MEDS: CHLORDIAZEPOXIDE 25 MG CAPSULE PO SCH (08:00)
[2018-05-09] MEDS: PANTOPROZOLE 40MG TABLET PO SCH (08:01)
[2018-05-09] MEDS: FOLIC ACID 1 MG TABLET PO SCH (08:01)
[2018-05-09] MEDS: MULTIVITAMIN 1 TABLET PO SCH (08:01)
[2018-05-09 12:37] VITALS: BP 102/67
[2018-05-09] MEDS: NICOTINE 21 MG/24 HR PATCH.TD24 TD SCH (12:38)
[2018-05-09] MEDS: AZITHROMYCIN 500 MG in SODIUM CHLORIDE 0.9% 250 ML IV SCH (12:38)
[2018-05-09] MEDS: LIDODERM 5% PATCH TD SCH (14:00)
[2018-05-09] MEDS: LORazepam 0.5MG TABLET PO PRN ×2 (18:14→21:17)
[2018-05-09 19:54] VITALS: BP 131/76
[2018-05-09] MEDS ORDERED: PANTOPRAZOLE 20MG TABLET PO SCH ×2 (21:22→21:25)
[2018-05-09] MEDS ORDERED: PANTOPROZOLE 40MG TABLET PO SCH (21:25)
[2018-05-09] MEDS ORDERED: PANTOPRAZOLE 20MG TABLET PO ONE (22:00)
[2018-05-10 02:00] VITALS: BP 109/66
[2018-05-10] MEDS: LORazepam 0.5MG TABLET PO PRN ×3 (04:23→20:29)
[2018-05-10 05:35] LABS: BASOPHILS # (AUTO) 0.03 x10^3/uL (0-0.1); BASOPHILS % (AUTO) 1 % (0-1); EOSINOPHILS % (AUTO) 1 % (1-7); LYMPHOCYTES # (AUTO) 2.27 x10^3/uL (1-3.4); LYMPHOCYTES % (AUTO) 33 % (22-44); MD NO; MEAN CORPUSCULAR HEMOGLOBIN 32.9 pg (27.5-34.5); MEAN CORPUSCULAR HGB CONC 33.2 g/dL (33.2-36.2); MEAN CORPUSCULAR VOLUME 99.1 fL (81-97); MEAN PLATELET VOLUME 8.2 fL (7.4-10.4); MONOCYTES # (AUTO) 0.92 x10^3/uL (0.2-0.8); MONOCYTES % (AUTO) 13 % (2-9); NEUTROPHILS # (AUTO) 3.62 x10^3/uL (1.8-6.8); NEUTROPHILS % (AUTO) 52 % (42-75); PLATELET COUNT 260 x10^3/uL (130-400); RED CELL DISTRIBUTION WIDTH 17.4 % (9.4-14.8)
[2018-05-10] MEDS: SODIUM CHLORIDE 0.45% 1,000 ML IV SCH (05:43)
[2018-05-10 05:49] LABS: ALBUMIN 3.3 g/dL (3.4-5.0); CALCIUM 8.6 mg/dL (8.5-10.1); CHLORIDE 107 mmol/L (98-107)
[2018-05-10 05:55] LABS: ALANINE AMINOTRANSFERASE 38 U/L (12-78); ALKALINE PHOSPHATASE 70 U/L (45-117); ANION GAP 6 mmol/L (5-15); BILIRUBIN,TOTAL 0.3 mg/dL (0.2-1.0); CREATININE 0.82 mg/dL (0.7-1.3); TOTAL PROTEIN 6.5 g/dL (6.4-8.2)
[2018-05-10] MEDS: SODIUM CHLORIDE NASAL SPRAY 45ML BOTTLE NAS PRN (06:43)
[2018-05-10 07:29] VITALS: BP 105/69
[2018-05-10] MEDS ORDERED: PANTOPRAZOLE 20MG TABLET PO SCH (08:00)
[2018-05-10] MEDS: FOLIC ACID 1 MG TABLET PO SCH (09:00)
[2018-05-10] MEDS ORDERED: CHLORDIAZEPOXIDE 25 MG CAPSULE PO SCH (09:00)
[2018-05-10] MEDS: MULTIVITAMIN 1 TABLET PO SCH (09:23)
[2018-05-10] MEDS: PANTOPRAZOLE 20MG TABLET PO SCH ×2 (09:23→15:25)
[2018-05-10] MEDS: GABAPENTIN 300 MG CAPSULE PO SCH ×3 (09:23→20:29)
[2018-05-10] MEDS: ACETAMINOPHEN 325 MG TABLET PO PRN (10:14)
[2018-05-10] MEDS: NICOTINE 21 MG/24 HR PATCH.TD24 TD SCH (11:42)
[2018-05-10] MEDS: LIDODERM 5% PATCH TD SCH (11:45)
[2018-05-10 13:11] VITALS: BP 129/67
[2018-05-10 19:33] VITALS: BP 114/56
[2018-05-11 00:53] VITALS: BP 104/57
[2018-05-11] MEDS: ACETAMINOPHEN 325 MG TABLET PO PRN (04:29)
[2018-05-11 05:12] LABS: ALBUMIN 3.6 g/dL (3.4-5.0); ANION GAP 7 mmol/L (5-15); CALCIUM 8.8 mg/dL (8.5-10.1); CHLORIDE 103 mmol/L (98-107)
[2018-05-11 05:13] LABS: CREATININE 0.81 mg/dL (0.7-1.3)
[2018-05-11] MEDS: PANTOPRAZOLE 20MG TABLET PO SCH (08:32)
[2018-05-11] MEDS: GABAPENTIN 300 MG CAPSULE PO SCH (08:32)
[2018-05-11] MEDS: FOLIC ACID 1 MG TABLET PO SCH (08:32)
[2018-05-11] MEDS: MULTIVITAMIN 1 TABLET PO SCH (08:32)
[2018-05-11 08:36] VITALS: BP 131/80
[2018-05-11] MEDS: LORazepam 0.5MG TABLET PO PRN (08:45)
[2018-05-11] MEDS ORDERED: THIA100T10 PO (10:33)
[2018-05-11] MEDS ORDERED: FOLI-17 PO (10:33)
[2018-05-11] MEDS ORDERED: PANT20TA3 PO (10:33)
== END 2018-05-11 11:55 | disposition home or self-care (01) | DRG 392 ==
LOC: ED 10:05 → 4WST 11:34 → UNDOADMIN 11:47 → EDIP 11:47 → DCLOUNGE 05-11 11:45
PROVIDERS: ADMIT Hospitalist; ATTEND Hospitalist
DX: K29.20 Alcoholic gastritis without bleeding (principal); F10.239 Alcohol dependence with withdrawal, unspecified; F17.210 Nicotine dependence, cigarettes, uncomplicated; F32.9 Major depressive disorder, single episode, unspecified; I10 Essential (primary) hypertension; I25.2 Old myocardial infarction; J00 Acute nasopharyngitis [common cold]; J44.9 Chronic obstructive pulmonary disease, unspecified; M79.7 Fibromyalgia; Z59.0 Homelessness; Z82.49 Family history of ischemic heart disease and other diseases of the circulatory system; R07.89 Other chest pain; R19.7 Diarrhea, unspecified; F13.10 Sedative, hypnotic or anxiolytic abuse, uncomplicated
CPT/HCPCS: 36415; 87046; 87400; 87427; 99285; J7121; 71045; 80048; 80053; 80307; 81003; 82040; 82272; 82550; 82962; 83690; 83735; 83880; 84100; 84439; 84443; 84484; 85025; 85610; 87205; 87324; 89055; 93005; 93306; 96374; 96375; 96376; G0378; J0456; J2405; J3411; J3475; J3480; Q0162; C9113; J2060; J7030; J7050

== ENCOUNTER 2018-05-21 06:09 | Emergency (ER) | payer MEDICAID ==
[~2018-05-21] VITALS: Ht 170.2 cm; Wt 67.9 kg
[~2018-05-21 06:09] MED LIST changes: +PANT20TA3 PO; +THIA100T10 PO
[2018-05-21] MEDS ORDERED: ONDANSETRON ODT 4 MG PO ONE (07:00)
[2018-05-21] MEDS ORDERED: THIAMINE 100 MG/ML, 2ML IM ONE (07:00)
[2018-05-21] MEDS ORDERED: LORazepam 1MG TABLET PO ONE (07:00)
[2018-05-21 07:16] LABS: BASOPHILS # (AUTO) 0.02 x10^3/uL (0-0.1); BASOPHILS % (AUTO) 0 % (0-1); EOSINOPHILS # (AUTO) 0.03 x10^3/uL (0-0.4); EOSINOPHILS % (AUTO) 1 % (1-7); LYMPHOCYTES # (AUTO) 0.62 x10^3/uL (1-3.4); LYMPHOCYTES % (AUTO) 11 % (22-44); MD NO; MEAN CORPUSCULAR HEMOGLOBIN 32.3 pg (27.5-34.5); MEAN CORPUSCULAR HGB CONC 33.8 g/dL (33.2-36.2); MEAN CORPUSCULAR VOLUME 95.4 fL (81-97); MEAN PLATELET VOLUME 7.1 fL (7.4-10.4); MONOCYTES # (AUTO) 0.47 x10^3/uL (0.2-0.8); MONOCYTES % (AUTO) 9 % (2-9); NEUTROPHILS # (AUTO) 4.39 x10^3/uL (1.8-6.8); NEUTROPHILS % (AUTO) 79 % (42-75); PLATELET COUNT 386 x10^3/uL (130-400); RED BLOOD COUNT 3.85 x10^6/uL (4.38-5.82); RED CELL DISTRIBUTION WIDTH 17.4 % (9.4-14.8)
[2018-05-21 07:27] LABS: ALBUMIN 3.6 g/dL (3.4-5.0); ANION GAP 10 mmol/L (5-15); CALCIUM 8.1 mg/dL (8.5-10.1); CHLORIDE 103 mmol/L (98-107)
[2018-05-21] MEDS ORDERED: THIAMINE 100 MG/ML, 2ML ONE (07:28)
[2018-05-21] MEDS ORDERED: ONDANSETRON ODT 4 MG ONE (07:28)
[2018-05-21] MEDS ORDERED: LORazepam 1MG TABLET ONE ×2 (07:28→07:30)
[2018-05-21 07:30] LABS: ALANINE AMINOTRANSFERASE 187 U/L (12-78); ALKALINE PHOSPHATASE 93 U/L (45-117); BILIRUBIN,TOTAL 0.8 mg/dL (0.2-1.0); CREATININE 0.67 mg/dL (0.7-1.3)
[2018-05-21 07:38] VITALS: BP 112/70
== END 2018-05-21 08:06 | disposition home or self-care (01) ==
LOC: ED 06:39
DX: F10.239 Alcohol dependence with withdrawal, unspecified (principal); Y90.9 Presence of alcohol in blood, level not specified
CPT/HCPCS: 36415; 80053; 85025; 96372; 99283; J3411; Q0162

== ENCOUNTER 2018-09-24 14:50 | Emergency (ER) | payer MEDICAID ==
[~2018-09-24] VITALS: Ht 170.2 cm; Wt 71.0 kg
[2018-09-24 14:59] VITALS: BP 110/69
--- NOTE | 2018-09-24 15:14 | NUR ---
DIRECT MAIL COORDINATOR: PT TO ROOM FROM [facility].
--- NOTE | 2018-09-24 15:58 | NUR ---
LYING ON RIGHT SIDE WITH EYES CLOSED. STATES HE HAS BEEN FEELING ANXIOUS THE LAST FEW DAYS AND STARTED HAVING A HARD TIME BREATHING TODAY. PT STATES HIS 21 YR OLD DAUGHTER HAS TERMINAL BRAIN CANCER AND COULD BE WHY HE IS HAVING PROBLEMS WITH ANXIETY
--- NOTE | 2018-09-24 16:33 | NUR ---
Patient/Caregiver given discharge instructions and they have confirmed that they understand the instructions. Patient ambulatory with steady gait.
== END 2018-09-24 16:34 | disposition home or self-care (01) ==
LOC: ED 15:24
DX: F41.1 Generalized anxiety disorder (principal); F10.220 Alcohol dependence with intoxication, uncomplicated; J44.9 Chronic obstructive pulmonary disease, unspecified; I25.2 Old myocardial infarction; I10 Essential (primary) hypertension; F32.9 Major depressive disorder, single episode, unspecified
CPT/HCPCS: 99284

== ENCOUNTER 2020-04-07 11:51 | Emergency (ER) | payer MEDICAID ==
[~2020-04-07] VITALS: Ht 175.3 cm; Wt 70.0 kg
[~2020-04-07 11:51] MED LIST changes: +CYAN-27 PO; -CYAN10005 PO; -PANT20TA3 PO; +PANT20TA4 PO
[2020-04-07 11:53] VITALS: BP 145/89
== END 2020-04-07 13:26 | disposition home or self-care (01) ==
LOC: ED 12:19
DX: F10.229 Alcohol dependence with intoxication, unspecified (principal); I10 Essential (primary) hypertension; J44.9 Chronic obstructive pulmonary disease, unspecified; I25.2 Old myocardial infarction; F17.200 Nicotine dependence, unspecified, uncomplicated; Y90.9 Presence of alcohol in blood, level not specified
CPT/HCPCS: 99283

== ENCOUNTER 2020-04-07 18:44 | Emergency (ER) | payer MEDICAID ==
[~2020-04-07] VITALS: Ht 170.2 cm; Wt 65.8 kg
--- NOTE | 2020-04-07 19:05 | NUR ---
REPORT RECEIVED FROM PEYTON TAPIA. PT RESTING ON GURNEY W/ CALL LIGHT IN REACH, RESP EVEN AND UNLABORED, NADN. AWAITING ED EVAL.
--- NOTE | 2020-04-07 19:24 | NUR ---
AT BEDSIDE FOR ED EVAL.
[2020-04-07] MEDS ORDERED: LORazepam 2 MG/ML, 1ML ONE (19:45)
[2020-04-07] MEDS ORDERED: ONDANSETRON 2MG/ML, 2ML ONE ×2 (19:45→20:36)
--- NOTE | 2020-04-07 19:51 | NUR ---
PT MEDICATED PER EMAR. RESTING COMFORTABLY ON [employer] W/ CALL LIGHT IN REACH AND SIDE RAILS UPX2. TACHYCARDIC, AND TACHYPNEIC, OTHER VS WDL.
[2020-04-07 19:59] LABS: BASOPHILS % (AUTO) 1 % (0-1); EOSINOPHILS % (AUTO) 0 % (1-7); LYMPHOCYTES % (AUTO) 15 % (22-44); MD NO; MEAN CORPUSCULAR HEMOGLOBIN 31.7 pg (27.5-34.5); MEAN CORPUSCULAR HGB CONC 33.7 g/dL (33.2-36.2); MEAN PLATELET VOLUME 7.1 fL (7.4-10.4); MONOCYTES % (AUTO) 6 % (2-9); NEUTROPHILS % (AUTO) 78 % (42-75); PLATELET COUNT 248 x10^3/uL (130-400); RED BLOOD COUNT 4.26 x10^6/uL (4.38-5.82); RED CELL DISTRIBUTION WIDTH 16.8 % (9.4-14.8)
[2020-04-07] MEDS ORDERED: ONDANSETRON 2MG/ML, 2ML IVPush ONE ×2 (20:00→21:00)
[2020-04-07] MEDS ORDERED: LORazepam 2 MG/ML, 1ML IVPush ONE (20:00)
[2020-04-07] MEDS ORDERED: SODIUM CHLORIDE 0.9% 1,000ML IVBOLUS ONE (20:00)
[2020-04-07 20:12] LABS: ALANINE AMINOTRANSFERASE 48 U/L (12-78); ALBUMIN 3.6 g/dL (3.4-5.0); ANION GAP 7 mmol/L (5-15); CALCIUM 7.9 mg/dL (8.5-10.1); CHLORIDE 107 mmol/L (98-107); CREATININE 0.86 mg/dL (0.7-1.3)
[2020-04-07 20:16] LABS: ALKALINE PHOSPHATASE 87 U/L (45-117); BILIRUBIN,TOTAL 0.6 mg/dL (0.2-1.0); TOTAL PROTEIN 7.1 g/dL (6.4-8.2); TROPONIN I < 0.015 ng/mL (0.000-0.045)
--- NOTE | 2020-04-07 20:18 | NUR ---
PT RESTING COMFORTABLY ON GURNEY WATCHING TV. REPORTS NO RELIEF IN NAUSEA OR PAIN AFTER MEDS, REQUESTING COFFEE AND MORE MEDS. URINE COLLECTED AND SENT TO LAB. RESP EVEN AND UNLABORED, FANNY.
[2020-04-07 20:23] VITALS: BP 122/76
[2020-04-07 20:27] LABS: MICROSCOPIC AUTO
[2020-04-07] MEDS ORDERED: MAALOX/HYOSCYAMINE/LIDOCAINE 45 ML BTL ONE (20:36)
[2020-04-07] MEDS ORDERED: MORPHINE SULFATE 4 MG/ML, 1ML ONE (20:36)
--- NOTE | 2020-04-07 20:45 | NUR ---
PT STATES HE WAS DRINKING TODAY TO "TRY AND KILL THE COVID". PT STATES ROOMMATE RECENTLY TESTED POSITIVE. PROVIDER UPDATED. RESP EVEN AND UNLABORED, FANNY.
[2020-04-07] MEDS ORDERED: MAALOX/HYOSCYAMINE/LIDOCAINE 45 ML BTL PO ONE (21:00)
[2020-04-07] MEDS ORDERED: MORPHINE SULFATE 4 MG/ML, 1ML IVPush PRN (21:00)
--- NOTE | 2020-04-07 21:34 | NUR ---
Patient given discharge instructions and they have confirmed that they understand the instructions. Patient ambulatory with steady gait.
== END 2020-04-07 21:36 ==
LOC: ED 19:14
DX: K29.20 Alcoholic gastritis without bleeding (principal); F10.129 Alcohol abuse with intoxication, unspecified; Z11.59 Encounter for screening for other viral diseases; R00.0 Tachycardia, unspecified; Z72.9 Problem related to lifestyle, unspecified; I25.2 Old myocardial infarction; J44.9 Chronic obstructive pulmonary disease, unspecified; F17.200 Nicotine dependence, unspecified, uncomplicated; Y90.9 Presence of alcohol in blood, level not specified
CPT/HCPCS: 36415; 71045; 80053; 80307; 81001; 83690; 84484; 85025; 87635; 93005; 96361; 96374; 96375; 96376; 99285; J2060; J2270; J2405; J7030

== ENCOUNTER 2020-04-09 16:46 | Emergency (ER) | payer MEDICAID ==
[~2020-04-09] VITALS: Ht 170.2 cm; Wt 66.0 kg
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
[2020-04-09] MEDS ORDERED: SODIUM CHLORIDE FLUSH 10ML SYR IVF ONE (17:30)
[2020-04-09] MEDS ORDERED: SODIUM CHLORIDE 0.9% 1,000ML IVBOLUS ONE (17:30)
[2020-04-09] MEDS ORDERED: KETOROLAC 30 MG/1 ML IVPush ONE (17:30)
[2020-04-09] MEDS ORDERED: KETOROLAC 30 MG/1 ML ONE (17:37)
--- NOTE | 2020-04-09 18:09 | NUR ---
PT GIVEN MEAL TRAY.
[2020-04-09 18:36] VITALS: BP 132/75
== END 2020-04-09 18:41 | disposition home or self-care (01) ==
LOC: ED 18:06
DX: B34.9 Viral infection, unspecified (principal); R05 Cough; R11.0 Nausea; R10.9 Unspecified abdominal pain; R51.9 Headache, unspecified; M79.10 Myalgia, unspecified site; R07.89 Other chest pain
CPT/HCPCS: 71045; 96361; 96374; 99283; J1885; J7030

== ENCOUNTER 2020-04-13 04:23 | Emergency (ER) | payer MEDICAID ==
[~2020-04-13] VITALS: Ht 170.2 cm; Wt 67.0 kg
--- NOTE | 2020-04-13 05:15 | NUR ---
PT ANXIOUS AND RESTLESS, PT HAS ROOM MATE THAT IS COVID +. PT A/O X4 AND IS IN NO OBVIOUS RESPITORY DISTRESS. PT RESTING IN BED WITH WARM BLANKET PROVIDED PER PT REQUEST
[2020-04-13] MEDS ORDERED: ONDANSETRON 2MG/ML, 2ML IVPush ONE (05:30)
[2020-04-13] MEDS ORDERED: SODIUM CHLORIDE 0.9% 1,000ML IVBOLUS ONE (05:30)
[2020-04-13] MEDS ORDERED: LORazepam 2 MG/ML, 1ML IVPush ONE (05:30)
[2020-04-13 05:59] LABS: BASOPHILS % (AUTO) 0 % (0-1); EOSINOPHILS % (AUTO) 0 % (1-7); LYMPHOCYTES % (AUTO) 10 % (22-44); MEAN CORPUSCULAR HEMOGLOBIN 32.5 pg (27.5-34.5); MEAN CORPUSCULAR HGB CONC 33.4 g/dL (33.2-36.2); MEAN PLATELET VOLUME 7.2 fL (7.4-10.4); MONOCYTES % (AUTO) 6 % (2-9); NEUTROPHILS % (AUTO) 84 % (42-75); PLATELET COUNT 225 x10^3/uL (130-400); RED BLOOD COUNT 3.54 x10^6/uL (4.38-5.82); RED CELL DISTRIBUTION WIDTH 18.9 % (9.4-14.8)
[2020-04-13 06:04] LABS: ALANINE AMINOTRANSFERASE 54 U/L (12-78); ALBUMIN 3.3 g/dL (3.4-5.0); ANION GAP 8 mmol/L (5-15); CALCIUM 7.4 mg/dL (8.5-10.1); CHLORIDE 109 mmol/L (98-107); CREATININE 0.73 mg/dL (0.7-1.3)
[2020-04-13 06:06] LABS: ALKALINE PHOSPHATASE 81 U/L (45-117); BILIRUBIN,TOTAL 0.5 mg/dL (0.2-1.0); TOTAL PROTEIN 6.3 g/dL (6.4-8.2)
[2020-04-13 06:07] LABS: MD NO
[2020-04-13 07:00] VITALS: BP 128/78
--- NOTE | 2020-04-13 07:00 | NUR ---
BEDSIDE REPORT RECEIVED. PT. IS RESTING WITH THE HOB ELEVATED GREATER THAN [address] FOR WARMTH, VSS. PT.'S NS BOLUS IS FINISHED. PT. HAS NO CONCERNS AT THIS TIME.
--- NOTE | 2020-04-13 07:44 | NUR ---
RN TO PT.'S ROOM, PT. IS GONE WITH THE GOWN ON THE STRETCHER. PT. HAD PULLED OUT HIS IV SITE AT THIS TIME.
== END 2020-04-13 07:47 | disposition left against medical advice (07) ==
LOC: ED 04:30
DX: F10.221 Alcohol dependence with intoxication delirium (principal); Z20.828 Contact with and (suspected) exposure to other viral communicable diseases; R11.2 Nausea with vomiting, unspecified; F17.290 Nicotine dependence, other tobacco product, uncomplicated; I48.91 Unspecified atrial fibrillation; Y90.9 Presence of alcohol in blood, level not specified
CPT/HCPCS: 36415; 71045; 80053; 80307; 85025; 87635; 93005; 96361; 96374; 99285; J2060; J2405; J7030

== ENCOUNTER 2020-04-15 18:57 | Inpatient (IN) | payer MEDICAID ==
[~2020-04-15] VITALS: Ht 170.2 cm; Wt 70.0 kg
[2020-04-15] MEDS: SODIUM BICARBONATE 8.4% 150 MEQ in DEXTROSE 5% 1,000 ML IV SCH ×3 (08:10→23:30)
[2020-04-15] MEDS ORDERED: DIPH,PERTUSS(ACELL),TET VAC/PF 0.5 ML IM-VACC ONE ×2 (19:30→19:36)
[2020-04-15] MEDS ORDERED: ONDANSETRON 2MG/ML, 2ML IVPush ONE (19:30)
[2020-04-15 19:33] LABS: MEAN CORPUSCULAR HEMOGLOBIN 33.4 pg (27.5-34.5); MEAN CORPUSCULAR HGB CONC 33.9 g/dL (33.2-36.2); MEAN PLATELET VOLUME 8.1 fL (7.4-10.4); PLATELET COUNT 159 x10^3/uL (130-400); RED BLOOD COUNT 3.13 x10^6/uL (4.38-5.82)
[2020-04-15] MEDS ORDERED: ONDANSETRON 2MG/ML, 2ML ONE (19:36)
[2020-04-15 19:41] LABS: ALANINE AMINOTRANSFERASE 43 U/L (12-78); ALBUMIN 2.2 g/dL (3.4-5.0); ANION GAP 12 mmol/L (5-15); CALCIUM 7.4 mg/dL (8.5-10.1); CHLORIDE 101 mmol/L (98-107); CREATININE 1.59 mg/dL (0.7-1.3)
[2020-04-15 19:43] LABS: SALICYLATE LEVEL < 1.7 mg/dL (2.8-20.0)
[2020-04-15 19:51] LABS: ALKALINE PHOSPHATASE 61 U/L (45-117); BILIRUBIN,TOTAL 0.5 mg/dL (0.2-1.0); TOTAL PROTEIN 5.7 g/dL (6.4-8.2)
--- NOTE | 2020-04-15 20:18 | NUR ---
PT RESTING IN BED, PT STATED "HISLEG HAVE BEEN WEAK SINCE HE CAUGHT COVID A COUPLE DAYS AGO AND CAN NOT MAKE IT TO THE BATHOOM." PT PROVIDED AMINA ON BED WITH KARL ON PT. PT REFUSED BEDSIDE COMODE. PT STATED "HE ALSO TOOK 200-300 IBPROFEN BUT STILL HAS BODY PAIN AND WANTS A PAIN MED" PROVIDER NOTIFIED
[2020-04-15 20:27] LABS: MD YES
[2020-04-15] MEDS ORDERED: LIDOCAINE 1%-EPI 1:100K, 30ML INFIL ONE (20:30)
[2020-04-15 20:35] LABS: BAND#(MANUAL) 2.69 x10^3/uL; BANDS%(MANUAL) 34 % (0-7); LYMPH#(MANUAL) 0.55 x10^3/uL (1-3.4); LYMPHS% (MANUAL) 7 % (22-44); METAMYELOCYTES# (MANUAL) 0.55 x10^3/uL (0-0); METAMYELOCYTES% (MANUAL) 7 % (0-1); MONOS#(MANUAL) 0.16 x10^3/uL (0.3-2.7); MONOS% (MANUAL) 2 % (2-9); SEG#(MANUAL) 3.95 x10^3/uL (1.8-6.8); SEGS% (MANUAL) 50 % (42-75)
[2020-04-15 20:37] LABS: OVALOCYTES 1+; POLYCHROMASIA 1+
[2020-04-15 20:38] LABS: ANISOCYTOSIS 1+
[2020-04-15 20:39] LABS: <PLATELET ESTIMATE> ADEQUATE; <PLT MORPHOLOGY> NORMAL PLT MORPH
--- NOTE | 2020-04-15 20:49 | NUR ---
PT ITEMS REMOVED AT ER INTAKE WITH PT ROOM SI SECURE. PT HAS LEGAL HOLD FROM [facility]
[2020-04-15] MEDS ORDERED: AZITHROMYCIN 500 MG in SODIUM CHLORIDE 0.9% 250 ML IV ONE (22:00)
[2020-04-15] MEDS ORDERED: SODIUM CHLORIDE FLUSH 10ML SYR IVF ONE ×2 (22:00)
[2020-04-15] MEDS ORDERED: SODIUM CHLORIDE 0.9% 1,000ML IVBOLUS ONE (22:00)
[2020-04-15] MEDS ORDERED: CEFTRIAXONE PMX 1GM/50ML 50 ML IVPB ONE (22:00)
[2020-04-15] MEDS ORDERED: CEFTRIAXONE PMX 1GM/50ML 50 ML ONE (22:44)
--- NOTE | 2020-04-15 23:00 | NUR ---
PT REQUESTED SOMETHING FOR HIS ANXIETY, PROVIDER NOTIFIED. PT MEDICATED PER EMAR IV ATIVAN 1MG DUE TO PT NAUSEA
[2020-04-15] MEDS ORDERED: LORazepam 2 MG/ML, 1ML ONE (23:12)
[2020-04-15] MEDS ORDERED: LORazepam 1MG TABLET PO ONE (23:30)
[2020-04-15 23:37] LABS: ANION GAP 13 mmol/L (5-15); CALCIUM 7.5 mg/dL (8.5-10.1); CHLORIDE 102 mmol/L (98-107); CREATININE 1.87 mg/dL (0.7-1.3)
--- NOTE | 2020-04-15 23:48 | NUR ---
PT RESTING IN BED, PT ON MONITOR, PT VSS, PT HAS NO WANTS OR NEES AT THIS TIME. PT ROOM SI SECURE
[2020-04-16] MEDS: HEPARIN 5,000 UNITS/ML, 1ML SQ SCH ×3 (00:30→18:15)
[2020-04-16] MEDS ORDERED: LABETALOL 5MG/ML, 20ML IVPush PRN (00:30)
[2020-04-16] MEDS ORDERED: SODIUM BICARBONATE 8.4% 150 MEQ in DEXTROSE 5% 1,000 ML IV SCH (00:30)
--- NOTE | 2020-04-16 00:58 | NUR ---
PT RESTING IN BED, PT ON MONITOR, PT VSS. PT DENIED ANY WANTS OR NEEDS AT THIS TIME
[2020-04-16] MEDS ORDERED: HEPARIN 5,000 UNITS/ML, 1ML ONE ×2 (01:47→10:04)
[2020-04-16] MEDS: SODIUM BICARBONATE 8.4% 150 MEQ in DEXTROSE 5% 1,000 ML IV SCH ×3 (02:14→14:50)
[2020-04-16 02:21] LABS: ANION GAP 13 mmol/L (5-15); CALCIUM 7.1 mg/dL (8.5-10.1); CHLORIDE 104 mmol/L (98-107); CREATININE 1.86 mg/dL (0.7-1.3)
[2020-04-16] MEDS ORDERED: LORazepam 2 MG/ML, 1ML ONE ×6 (03:13→13:20)
[2020-04-16] MEDS: LORazepam 2 MG/ML, 1ML IV PRN ×10 (03:23→23:15)
--- NOTE | 2020-04-16 03:57 | NUR ---
PT REPORTED TO THIS RN THAT PERINEAL AREA WAS HURTING. WILLIE NEW SENT IN TO ASSESS. PER SHAQ, PERINEAL AREA REPORTED TO BE RED AND RAW. PT PROVIDED WITH CALAZIME LOTION. PT PROVIDED WITH FOOD PER REQUEST AND UP TO BATHROOOM. ALL NEEDS MET AT THIS TIME.
[2020-04-16 06:00] LABS: CLOSTRIDIUM DIFFICILE ANTIGEN NEGATIVE; CLOSTRIDIUM DIFFICILE TOXIN NEGATIVE (Negative)
--- NOTE | 2020-04-16 06:02 | NUR ---
PT SOILED SELF IN BED HE WAS UNABLE TO REACH THE BEDSIDE COMMODE IN TIME. PT PULLED OUT PIV WHILE ATTEMPTING TO GET OUT OF BED TO USE BATHROOM. THIS RN TO BEDSIDE. PT ASSISSTED WITH CLEANING SELF AND MARCO-CARE. PT CHANGED IN TO NEW GOWN. PT PLACED ON HOSPITAL BED. NEW IV STARTED. PT STATES THAT HE'S FEELING MUCH BETTER. LIGHTS OFF TO PROMOTE REST. PT SLEEPING, EYES CLOSED, RESPIRATIONS EVEN AND UNLABORED.
[2020-04-16] MEDS ORDERED: POTASSIUM CHLORIDE 20 MEQ TAB.ER.PRT PO ONE (06:30)
[2020-04-16 06:32] LABS: ANION GAP 11 mmol/L (5-15); CALCIUM 7.2 mg/dL (8.5-10.1); CHLORIDE 102 mmol/L (98-107); CREATININE 1.95 mg/dL (0.7-1.3)
[2020-04-16] MEDS ORDERED: MAGNESIUM SULFATE PMX 2GM/50ML 50 ML IV ONE (07:00)
--- NOTE | 2020-04-16 07:11 | NUR ---
REPORT TO WILLIE CHE AND WILLIE CARLOS. PT SLEEPING, RESPIRAITONS EVEN AND UNLABORED.
--- NOTE | 2020-04-16 07:16 | NUR ---
CESAR HAND-OFF REPORT RECEIVED FROM WILLIE DAMIAN. ASSUMING CARE OF PATIENT. Addendum: 04/16/20 at 0716 by RAGINI CORRECTION-CESAR HAND-OFF REPORT RECEIVED FROM WILLIE TUCKER (NOT RICKIE). ASSUMING CARE OF PATIENT.
[2020-04-16 07:41] LABS: INTERNATIONAL NORMALIZED RATIO 0.97 (0.93-1.1); PROTHROMBIN TIME 10.3 Seconds (9.6-11.5)
[2020-04-16] MEDS ORDERED: FAMOTIDINE 20 MG/2 ML IVPush SCH (09:00)
[2020-04-16] MEDS ORDERED: POTASSIUM CHLORIDE 40 MEQ in SODIUM CHLORIDE 0.9% 500 ML IV ONE (09:30)
[2020-04-16] MEDS ORDERED: DIAZEPAM 5 MG TABLET PO SCH ×2 (10:00→16:00)
[2020-04-16] MEDS ORDERED: NICOTINE 14MG/24 HR PATCH.TD24 ONE (10:03)
[2020-04-16] MEDS ORDERED: FAMOTIDINE 20 MG/2 ML ONE ×2 (10:04→10:05)
[2020-04-16] MEDS ORDERED: DIAZEPAM 5 MG TABLET ONE (10:04)
[2020-04-16] MEDS ORDERED: MAGNESIUM SULFATE PMX 2GM/50ML 50 ML ONE (10:04)
[2020-04-16 10:05] LABS: ANION GAP 12 mmol/L (5-15); CALCIUM 7.5 mg/dL (8.5-10.1); CHLORIDE 104 mmol/L (98-107)
[2020-04-16 10:06] LABS: CREATININE 1.79 mg/dL (0.7-1.3)
[2020-04-16] MEDS: MULTIVITAMINS/MINERALS TABLET PO SCH (10:10)
[2020-04-16 10:11] LABS: FIO2 ROOM AIR %
[2020-04-16] MEDS: NICOTINE 14MG/24 HR PATCH.TD24 TD SCH (10:17)
[2020-04-16] MEDS ORDERED: LOPERAMIDE 2 MG CAPSULE PO PRN (11:00)
[2020-04-16] MEDS: KSCALE TO 4.5 IV SCH ×3 (11:14→19:00)
[2020-04-16] MEDS ORDERED: ONDANSETRON 2MG/ML, 2ML ONE (11:15)
[2020-04-16] MEDS ORDERED: MORPHINE SULFATE 4 MG/ML, 1ML ONE (11:16)
[2020-04-16] MEDS ORDERED: PANTOPRAZOLE 40 MG IV ONE (11:21)
[2020-04-16] MEDS: PANTOPRAZOLE 40 MG IV IVPush SCH ×2 (11:29→23:15)
[2020-04-16] MEDS ORDERED: LEVOFLOXACIN/PMX 500MG/100ML 100 ML IV SCH (11:30)
[2020-04-16] MEDS: MORPHINE SULFATE 4 MG/ML, 1ML IVPush PRN ×3 (11:30→20:30)
[2020-04-16] MEDS: ONDANSETRON 2MG/ML, 2ML IVPush PRN ×2 (11:30→18:45)
[2020-04-16] MEDS ORDERED: LEVOFLOXACIN/PMX 500MG/100ML 100 ML ONE (12:21)
[2020-04-16] MEDS ORDERED: LOPERAMIDE 2 MG CAPSULE ONE ×2 (12:32→14:11)
--- NOTE | 2020-04-16 13:38 | NUR ---
PHARMACY REQUEST SLIP SENT TO PHARMACY FOR POTASSIUM PHOSPHATE AND THIAMINE.
[2020-04-16] MEDS ORDERED: POTASSIUM PHOSPHATE 22 MEQ in SODIUM CHLORIDE 0.9% 500 ML IV ONE (13:46)
[2020-04-16] MEDS: THIAMINE 100 MG in SODIUM CHLORIDE 0.9% 50 ML IV SCH (14:16)
--- NOTE | 2020-04-16 14:19 | NUR ---
PT MEDICATED WITH POTASSIUM PHOSPHATE ORDERED. POTASSIUM CHLORIDE COMPLETE. IV THIAMINE STARTED. PT GIVEN LOPERAMIDE PRN FOR DIARRHEA. PT TO HOSPITAL ROOM AT THIS TIME.
[2020-04-16 14:33] VITALS: BP 101/63
[2020-04-16] MEDS ORDERED: KSCALE TO 4.5 IV SCH (15:00)
[2020-04-16] MEDS ORDERED: LEVOFLOXACIN/PMX 500MG/100ML 100 ML IV ONE (15:30)
[2020-04-16 15:43] LABS: ANION GAP 9 mmol/L (5-15); CALCIUM 7.4 mg/dL (8.5-10.1); CHLORIDE 105 mmol/L (98-107); CREATININE 1.54 mg/dL (0.7-1.3)
[2020-04-16] MEDS: D5%-0.45NACL+KCL 20MEQ 1,000 ML IV SCH (16:54)
[2020-04-16 18:29] LABS: MICROSCOPIC INDICATED
[2020-04-16 18:37] LABS: AMPHETAMINE SCREEN, URINE Negative (Negative); BARBITURATE SCREEN, URINE Negative (Negative); BENZODIAZEPINE SCREEN, URINE Negative (Negative); CANNABINOID SCREEN, URINE Negative (Negative); COCAINE SCREEN, URINE Negative (Negative); METHADONE SCREEN, URINE Negative (Negative); OPIATE SCREEN, URINE Positive (Negative)
[2020-04-16] MEDS: DIAZEPAM 5 MG TABLET PO SCH (20:30)
[2020-04-16 21:00] VITALS: BP 106/64
[2020-04-16] MEDS: CEFTRIAXONE PMX 1GM/50ML 50 ML IV SCH (22:17)
[2020-04-16] MEDS: AZITHROMYCIN 250 MG TABLET PO SCH (22:17)
[2020-04-17 01:03] VITALS: BP 112/67
[2020-04-17] MEDS: HEPARIN 5,000 UNITS/ML, 1ML SQ SCH ×3 (02:17→17:43)
[2020-04-17] MEDS: LORazepam 2 MG/ML, 1ML IV PRN ×2 (02:17→05:28)
[2020-04-17] MEDS: KSCALE TO 4.5 IV SCH ×6 (04:00→20:00)
[2020-04-17 05:16] LABS: MEAN CORPUSCULAR HEMOGLOBIN 33.1 pg (27.5-34.5); MEAN CORPUSCULAR HGB CONC 34.2 g/dL (33.2-36.2); MEAN PLATELET VOLUME 8.4 fL (7.4-10.4); PLATELET COUNT 164 x10^3/uL (130-400); RED BLOOD COUNT 2.42 x10^6/uL (4.38-5.82); RED CELL DISTRIBUTION WIDTH 19.4 % (9.4-14.8)
[2020-04-17] MEDS: D5%-0.45NACL+KCL 20MEQ 1,000 ML IV SCH ×2 (05:27→19:28)
[2020-04-17 06:14] LABS: MD YES
[2020-04-17 06:16] LABS: LYMPH#(MANUAL) 0.92 x10^3/uL (1-3.4); LYMPHS% (MANUAL) 15 % (22-44); MONOS#(MANUAL) 0.79 x10^3/uL (0.3-2.7); MONOS% (MANUAL) 13 % (2-9); SEG#(MANUAL) 4.39 x10^3/uL (1.8-6.8); SEGS% (MANUAL) 72 % (42-75)
[2020-04-17 06:17] LABS: <PLATELET ESTIMATE> ADEQUATE; <PLT MORPHOLOGY> NORMAL PLT MORPH; ANISOCYTOSIS 1+; POLYCHROMASIA 1+
[2020-04-17 07:30] VITALS: BP 109/67
[2020-04-17] MEDS: DIAZEPAM 5 MG TABLET PO SCH ×3 (08:28→21:57)
[2020-04-17] MEDS: MULTIVITAMINS/MINERALS TABLET PO SCH (08:28)
[2020-04-17] MEDS: NICOTINE 14MG/24 HR PATCH.TD24 TD SCH (08:30)
[2020-04-17 12:00] VITALS: BP 108/68
[2020-04-17] MEDS: MORPHINE SULFATE 4 MG/ML, 1ML IVPush PRN (14:15)
[2020-04-17] MEDS: PANTOPRAZOLE 40 MG IV IVPush SCH (14:15)
[2020-04-17] MEDS: THIAMINE 100 MG in SODIUM CHLORIDE 0.9% 50 ML IV SCH (14:27)
[2020-04-17] MEDS: LEVOFLOXACIN/PMX 250MG/50ML 50 ML IV SCH (17:43)
[2020-04-17 20:15] VITALS: BP 131/74
[2020-04-17] MEDS: CEFTRIAXONE PMX 1GM/50ML 50 ML IV SCH (21:57)
[2020-04-17] MEDS: AZITHROMYCIN 250 MG TABLET PO SCH (21:58)
[2020-04-17] MEDS: ONDANSETRON 2MG/ML, 2ML IVPush PRN (22:09)
[2020-04-18] MEDS: MORPHINE SULFATE 4 MG/ML, 1ML IVPush PRN ×4 (00:50→21:59)
[2020-04-18 01:38] VITALS: BP 127/68
[2020-04-18] MEDS: PANTOPRAZOLE 40 MG IV IVPush SCH ×2 (02:20→14:38)
[2020-04-18] MEDS: HEPARIN 5,000 UNITS/ML, 1ML SQ SCH ×3 (02:21→18:36)
[2020-04-18] MEDS: KSCALE TO 4.5 IV SCH ×3 (04:00→08:00)
[2020-04-18 04:21] LABS: BASOPHILS % (AUTO) 0 % (0-1); EOSINOPHILS % (AUTO) 1 % (1-7); LYMPHOCYTES % (AUTO) 24 % (22-44); MEAN CORPUSCULAR HGB CONC 33.2 g/dL (33.2-36.2); MEAN PLATELET VOLUME 8.3 fL (7.4-10.4); MONOCYTES % (AUTO) 29 % (2-9); NEUTROPHILS % (AUTO) 46 % (42-75); PLATELET COUNT 181 x10^3/uL (130-400); RED BLOOD COUNT 2.51 x10^6/uL (4.38-5.82); RED CELL DISTRIBUTION WIDTH 20.1 % (9.4-14.8)
[2020-04-18 04:38] LABS: CHLORIDE 107 mmol/L (98-107)
[2020-04-18 04:48] LABS: ALANINE AMINOTRANSFERASE 26 U/L (12-78); ALBUMIN 1.8 g/dL (3.4-5.0); ALKALINE PHOSPHATASE 61 U/L (45-117); ANION GAP 6 mmol/L (5-15); BILIRUBIN,TOTAL 0.2 mg/dL (0.2-1.0); CALCIUM 7.9 mg/dL (8.5-10.1); CREATININE 0.67 mg/dL (0.7-1.3); TOTAL PROTEIN 5.3 g/dL (6.4-8.2)
[2020-04-18] MEDS: D5%-0.45NACL+KCL 20MEQ 1,000 ML IV SCH (05:32)
[2020-04-18 05:42] LABS: MD SCAN
[2020-04-18 06:50] VITALS: BP 92/54
[2020-04-18] MEDS ORDERED: POTASSIUM CHLORIDE 30 MEQ in SODIUM CHLORIDE 0.9% 500 ML IV ONE (10:00)
[2020-04-18] MEDS: NICOTINE 14MG/24 HR PATCH.TD24 TD SCH (10:01)
[2020-04-18] MEDS: MULTIVITAMINS/MINERALS TABLET PO SCH (10:01)
[2020-04-18] MEDS: DIAZEPAM 5 MG TABLET PO SCH (10:01)
[2020-04-18] MEDS: AZITHROMYCIN 250 MG TABLET PO SCH (10:01)
[2020-04-18] MEDS ORDERED: ALBUTEROL/IPRATROPIUM 2.5MG/0.5MG, 3 ML HHN SCH (13:30)
[2020-04-18 14:02] VITALS: BP 109/69
[2020-04-18] MEDS: THIAMINE 100 MG in SODIUM CHLORIDE 0.9% 50 ML IV SCH (14:37)
[2020-04-18] MEDS: LEVOFLOXACIN/PMX 250MG/50ML 50 ML IV SCH (16:26)
[2020-04-18 19:16] VITALS: BP 99/62
[2020-04-18] MEDS: CEFTRIAXONE PMX 1GM/50ML 50 ML IV SCH (21:58)
[2020-04-19 00:27] VITALS: BP 108/58
[2020-04-19] MEDS: MORPHINE SULFATE 4 MG/ML, 1ML IVPush PRN ×4 (02:09→21:01)
[2020-04-19] MEDS: PANTOPRAZOLE 40 MG IV IVPush SCH ×2 (02:09→13:48)
[2020-04-19] MEDS: HEPARIN 5,000 UNITS/ML, 1ML SQ SCH ×3 (02:09→17:45)
[2020-04-19] MEDS: D5%-0.45NACL+KCL 20MEQ 1,000 ML IV SCH ×2 (03:18→14:25)
[2020-04-19 06:15] LABS: ANION GAP 6 mmol/L (5-15); CALCIUM 8.1 mg/dL (8.5-10.1); CHLORIDE 106 mmol/L (98-107)
[2020-04-19 06:16] LABS: CREATININE 0.55 mg/dL (0.7-1.3)
[2020-04-19 07:08] VITALS: BP 133/74
[2020-04-19] MEDS: DOCUSATE 100 MG CAPSULE PO PRN (08:59)
[2020-04-19] MEDS: AZITHROMYCIN 250 MG TABLET PO SCH (08:59)
[2020-04-19] MEDS: MULTIVITAMINS/MINERALS TABLET PO SCH (09:00)
[2020-04-19] MEDS: NICOTINE 14MG/24 HR PATCH.TD24 TD SCH (09:01)
[2020-04-19] MEDS: LORazepam 2 MG/ML, 1ML IV PRN ×2 (11:16→22:33)
[2020-04-19 12:28] VITALS: BP 103/67
[2020-04-19] MEDS: THIAMINE 100 MG in SODIUM CHLORIDE 0.9% 50 ML IV SCH (13:49)
[2020-04-19] MEDS: LEVOFLOXACIN/PMX 250MG/50ML 50 ML IV SCH (16:38)
[2020-04-19] MEDS: ALBUTEROL-IPRATROPIUM MDI INH INH PRN (17:45)
[2020-04-19 18:58] VITALS: BP 120/77
[2020-04-19] MEDS: GUAIFENESIN ER 600 MG TABLET PO SCH (21:01)
[2020-04-19] MEDS: CEFTRIAXONE PMX 1GM/50ML 50 ML IV SCH (21:01)
[2020-04-19] MEDS: ONDANSETRON 2MG/ML, 2ML IVPush PRN (22:33)
[2020-04-20 00:49] VITALS: BP 116/70
[2020-04-20] MEDS: PANTOPRAZOLE 40 MG IV IVPush SCH ×2 (01:29→13:40)
[2020-04-20] MEDS: MORPHINE SULFATE 4 MG/ML, 1ML IVPush PRN ×5 (01:29→21:58)
[2020-04-20] MEDS: HEPARIN 5,000 UNITS/ML, 1ML SQ SCH ×3 (01:29→17:25)
[2020-04-20] MEDS: D5%-0.45NACL+KCL 20MEQ 1,000 ML IV SCH ×2 (03:49→14:12)
[2020-04-20 07:38] VITALS: BP 124/74
[2020-04-20] MEDS: GUAIFENESIN ER 600 MG TABLET PO SCH ×2 (08:14→21:59)
[2020-04-20] MEDS: MULTIVITAMINS/MINERALS TABLET PO SCH (08:15)
[2020-04-20] MEDS: AZITHROMYCIN 250 MG TABLET PO SCH (08:15)
[2020-04-20] MEDS: NICOTINE 14MG/24 HR PATCH.TD24 TD SCH (08:17)
[2020-04-20] MEDS: LORazepam 2 MG/ML, 1ML IV PRN ×3 (08:37→17:26)
[2020-04-20 12:12] VITALS: BP 95/54
[2020-04-20] MEDS: THIAMINE 100 MG in SODIUM CHLORIDE 0.9% 50 ML IV SCH (13:40)
[2020-04-20] MEDS: LEVOFLOXACIN/PMX 250MG/50ML 50 ML IV SCH (15:38)
[2020-04-20 21:26] VITALS: BP 111/69
[2020-04-20] MEDS: ALBUTEROL-IPRATROPIUM MDI INH INH PRN (22:06)
[2020-04-21] MEDS: D5%-0.45NACL+KCL 20MEQ 1,000 ML IV SCH ×3 (00:26→20:38)
[2020-04-21 01:37] VITALS: BP 109/73
[2020-04-21] MEDS: MORPHINE SULFATE 4 MG/ML, 1ML IVPush PRN ×5 (01:38→20:39)
[2020-04-21] MEDS: PANTOPRAZOLE 40 MG IV IVPush SCH (01:38)
[2020-04-21] MEDS: HEPARIN 5,000 UNITS/ML, 1ML SQ SCH ×3 (01:38→16:35)
[2020-04-21] MEDS: ALBUTEROL-IPRATROPIUM MDI INH INH PRN (03:25)
[2020-04-21 06:16] VITALS: BP 110/66
[2020-04-21] MEDS: MULTIVITAMINS/MINERALS TABLET PO SCH (08:42)
[2020-04-21] MEDS: GUAIFENESIN ER 600 MG TABLET PO SCH ×2 (08:42→20:28)
[2020-04-21] MEDS: AZITHROMYCIN 250 MG TABLET PO SCH (08:42)
[2020-04-21] MEDS: NICOTINE 14MG/24 HR PATCH.TD24 TD SCH (08:46)
[2020-04-21] MEDS: PANTOPRAZOLE 40MG TABLET PO SCH ×2 (10:42→20:28)
[2020-04-21 12:29] VITALS: BP 113/71
[2020-04-21] MEDS: THIAMINE 100 MG in SODIUM CHLORIDE 0.9% 50 ML IV SCH (13:58)
[2020-04-21] MEDS: LEVOFLOXACIN 750 MG TABLET PO SCH (15:34)
[2020-04-21] MEDS ORDERED: LEVOFLOXACIN 250 MG TABLET PO SCH (16:00)
[2020-04-21] MEDS: DOCUSATE 100 MG CAPSULE PO PRN (16:35)
[2020-04-21] MEDS: ONDANSETRON 2MG/ML, 2ML IVPush PRN (16:35)
[2020-04-21 18:46] VITALS: BP 127/79
[2020-04-22] MEDS: HEPARIN 5,000 UNITS/ML, 1ML SQ SCH ×3 (00:27→16:29)
[2020-04-22] MEDS: MORPHINE SULFATE 4 MG/ML, 1ML IVPush PRN ×3 (00:29→09:21)
[2020-04-22 01:00] VITALS: BP 129/78
[2020-04-22 07:39] VITALS: BP 123/69
[2020-04-22] MEDS: PANTOPRAZOLE 40MG TABLET PO SCH ×2 (08:43→20:47)
[2020-04-22] MEDS: GUAIFENESIN ER 600 MG TABLET PO SCH ×2 (08:44→20:47)
[2020-04-22] MEDS: MULTIVITAMINS/MINERALS TABLET PO SCH (08:44)
[2020-04-22] MEDS: D5%-0.45NACL+KCL 20MEQ 1,000 ML IV SCH (08:44)
[2020-04-22] MEDS: NICOTINE 14MG/24 HR PATCH.TD24 TD SCH (08:45)
[2020-04-22 12:13] VITALS: BP 122/62
[2020-04-22] MEDS: BUSPIRONE 10 MG TABLET PO SCH ×2 (12:17→19:29)
[2020-04-22] MEDS ORDERED: HYDROcodone/APAP 5/325 TABLET PO PRN (13:00)
[2020-04-22] MEDS: THIAMINE 100MG TABLET PO SCH (16:29)
[2020-04-22] MEDS: LEVOFLOXACIN 750 MG TABLET PO SCH (16:29)
[2020-04-22 19:41] VITALS: BP 105/77
[2020-04-23 00:31] VITALS: BP 118/73
[2020-04-23] MEDS: HEPARIN 5,000 UNITS/ML, 1ML SQ SCH ×2 (02:09→09:13)
[2020-04-23] MEDS: ONDANSETRON 2MG/ML, 2ML IVPush PRN (02:55)
[2020-04-23] MEDS: BUSPIRONE 10 MG TABLET PO SCH ×3 (02:55→19:16)
[2020-04-23 06:53] VITALS: BP 102/64
[2020-04-23] MEDS: THIAMINE 100MG TABLET PO SCH (09:12)
[2020-04-23] MEDS: SERTRALINE 50MG TABLET PO SCH (09:12)
[2020-04-23] MEDS: GUAIFENESIN ER 600 MG TABLET PO SCH ×2 (09:12→21:31)
[2020-04-23] MEDS: PANTOPRAZOLE 40MG TABLET PO SCH ×2 (09:12→21:31)
[2020-04-23] MEDS: NICOTINE 14MG/24 HR PATCH.TD24 TD SCH (09:13)
[2020-04-23 09:47] LABS: ANION GAP 7 mmol/L (5-15); CALCIUM 8.8 mg/dL (8.5-10.1); CHLORIDE 105 mmol/L (98-107); CREATININE 0.82 mg/dL (0.7-1.3)
[2020-04-23 12:02] VITALS: BP 106/65
[2020-04-23] MEDS: CYCLOBENZAPRINE 10 MG TABLET PO PRN ×2 (12:36→21:31)
[2020-04-23] MEDS: LEVOFLOXACIN 750 MG TABLET PO SCH (16:57)
[2020-04-23 18:36] VITALS: BP 123/58
[2020-04-24 00:28] VITALS: BP 104/68
[2020-04-24] MEDS: BUSPIRONE 10 MG TABLET PO SCH ×2 (03:35→11:44)
[2020-04-24 06:44] VITALS: BP 91/49
[2020-04-24] MEDS: NICOTINE 14MG/24 HR PATCH.TD24 TD SCH (09:31)
[2020-04-24] MEDS: PANTOPRAZOLE 40MG TABLET PO SCH (09:31)
[2020-04-24] MEDS: SERTRALINE 50MG TABLET PO SCH (09:31)
[2020-04-24] MEDS: THIAMINE 100MG TABLET PO SCH (09:31)
[2020-04-24] MEDS: GUAIFENESIN ER 600 MG TABLET PO SCH (09:31)
[2020-04-24] MEDS: CYCLOBENZAPRINE 10 MG TABLET PO PRN (09:50)
[2020-04-24] MEDS ORDERED: PANT40TA6 PO (11:26)
[2020-04-24] MEDS ORDERED: BUSP30TA PO (11:26)
[2020-04-24] MEDS ORDERED: LEVO750T6 PO (11:26)
[2020-04-24] MEDS ORDERED: SERT50TA28 PO (11:26)
[2020-04-24] MEDS ORDERED: CYCL-259 PO (11:26)
[2020-04-24 12:00] VITALS: BP 93/59
[2020-04-24] MEDS ORDERED: FLU VACC QS2020-21(6MOS UP)/PF 60MCG/0.5 ML SYR IM ONE (13:00)
== END 2020-04-24 12:37 | DRG 917 ==
LOC: ED 21:14 → EDIP 04-16 00:15 → 4WST 04-16 14:26
PROVIDERS: ADMIT Family Medicine; ATTEND Hospitalist
DX: T39.391A Poisoning by other nonsteroidal anti-inflammatory drugs [NSAID], accidental (unintentional), initial encounter (principal); E43 Unspecified severe protein-calorie malnutrition; J18.1 Lobar pneumonia, unspecified organism; N17.9 Acute kidney failure, unspecified; F10.230 Alcohol dependence with withdrawal, uncomplicated; J44.0 Chronic obstructive pulmonary disease with (acute) lower respiratory infection; E87.2 Acidosis; Z20.828 Contact with and (suspected) exposure to other viral communicable diseases; T39.312A Poisoning by propionic acid derivatives, intentional self-harm, initial encounter; S61.519A Laceration without foreign body of unspecified wrist, initial encounter; D64.9 Anemia, unspecified; E87.6 Hypokalemia; F17.210 Nicotine dependence, cigarettes, uncomplicated; F32.9 Major depressive disorder, single episode, unspecified; F41.1 Generalized anxiety disorder; M79.7 Fibromyalgia; F10.20 Alcohol dependence, uncomplicated; S51.811A Laceration without foreign body of right forearm, initial encounter; G89.11 Acute pain due to trauma; G89.29 Other chronic pain; I25.2 Old myocardial infarction; Z79.899 Other long term (current) drug therapy
CPT/HCPCS: 36415; 36600; 71045; 80048; 80053; 80307; 81001; 82803; 83735; 84100; 84145; 84443; 85025; 85610; 87205; 87324; 87449; 87635; 90471; 90686; 90715; 93005; 96365; 96375; 99291; G0378; J0456; J0696; J1644; J1956; J2405; J3411; J3480; J7070; C9113; J2060; J2270; J3475; J7030; J7040; J7050

== ENCOUNTER 2020-04-25 09:17 | Emergency (ER) | payer MEDICAID ==
[~2020-04-25] VITALS: Ht 170.2 cm; Wt 72.0 kg
[~2020-04-25 09:17] MED LIST changes: +BUSP30TA PO; +CYCL-259 PO; +LEVO750T6 PO; +PANT40TA6 PO; +SERT50TA28 PO
[2020-04-25] MEDS ORDERED: LORazepam 2 MG/ML, 1ML IVPush ONE (09:30)
[2020-04-25] MEDS ORDERED: SODIUM CHLORIDE 0.9% 1,000 ML IV ONE (09:30)
[2020-04-25] MEDS ORDERED: SODIUM CHLORIDE FLUSH 10ML SYR IVF ONE (09:30)
[2020-04-25 09:59] LABS: BASOPHILS % (AUTO) 1 % (0-1); EOSINOPHILS % (AUTO) 0 % (1-7); LYMPHOCYTES % (AUTO) 14 % (22-44); MEAN CORPUSCULAR HEMOGLOBIN 32.5 pg (27.5-34.5); MEAN CORPUSCULAR HGB CONC 33.1 g/dL (33.2-36.2); MEAN PLATELET VOLUME 7.2 fL (7.4-10.4); MONOCYTES % (AUTO) 8 % (2-9); NEUTROPHILS % (AUTO) 76 % (42-75); RED BLOOD COUNT 3.02 x10^6/uL (4.38-5.82); RED CELL DISTRIBUTION WIDTH 20.5 % (9.4-14.8)
[2020-04-25 10:10] LABS: ALANINE AMINOTRANSFERASE 21 U/L (12-78); ALBUMIN 2.8 g/dL (3.4-5.0); ANION GAP 4 mmol/L (5-15); CALCIUM 8.8 mg/dL (8.5-10.1); CHLORIDE 104 mmol/L (98-107)
[2020-04-25] MEDS ORDERED: LORazepam 2 MG/ML, 1ML ONE ×2 (10:11→11:14)
[2020-04-25 10:14] LABS: ALKALINE PHOSPHATASE 82 U/L (45-117); BILIRUBIN,TOTAL 0.4 mg/dL (0.2-1.0); CREATININE 0.78 mg/dL (0.7-1.3); TROPONIN I < 0.015 ng/mL (0.000-0.045)
[2020-04-25 10:25] LABS: PLATELET COUNT 1094 x10^3/uL (130-400)
--- NOTE | 2020-04-25 10:45 | NUR ---
RECEIVED REPORT FROM HARRISON
[2020-04-25 10:53] LABS: MD SCAN
--- NOTE | 2020-04-25 11:00 | NUR ---
PT SITTING UPRIGHT ON [facility] WITH KENNA EMPLOYEE AT BEDSIDE. NAD, VSS. PT GIVEN COFFEE PER REQUEST. NO ADDITONAL NEEDS AT THIS TIME. CALL LIGHT WITHIN REACH.
[2020-04-25] MEDS ORDERED: LORazepam 2 MG/ML, 1ML IV ONE (11:30)
[2020-04-25 11:55] VITALS: BP 110/70
--- NOTE | 2020-04-25 11:55 | NUR ---
Patient given discharge instructions and they have confirmed that they understand the instructions. Patient ambulatory with steady gait.
--- NOTE | 2020-04-25 12:14 | NUR ---
Patient Tranfers to outside Facility. PT RETURNING TO [facility] ON LEGAL HOLD. REPORT GIVEN TO RADHA TAPIA.
--- NOTE | 2020-04-25 12:47 | NUR ---
TASK RN COVERING MEAL BREAK. CALL FROM PT'S DAUGHTER RECEIVED. PERMISSION RECEIVED FROM PT TO PROVIDE INFORMATION ABOUT DISCHARGE TO [facility]. NO OTHER INFORMATION GIVEN.
--- NOTE | 2020-04-25 13:08 | NUR ---
REPORT GIVEN TO EMS, PT AMBULATED TO EXIT WITH ACCOMPAINED BY [facility] AND [facility] STAFF.
== END 2020-04-25 13:10 ==
LOC: ED 11:00
DX: D47.3 Essential (hemorrhagic) thrombocythemia (principal); D64.9 Anemia, unspecified; R00.0 Tachycardia, unspecified; F41.9 Anxiety disorder, unspecified; I25.2 Old myocardial infarction; J44.9 Chronic obstructive pulmonary disease, unspecified
CPT/HCPCS: 36415; 71045; 80053; 82728; 83540; 83550; 83615; 83690; 84145; 84484; 85025; 86140; 93005; 96361; 96374; 96375; 99285; J2060; J7030

== ENCOUNTER 2020-05-05 09:16 | Emergency (ER) | payer MEDICAID ==
[~2020-05-05] VITALS: Ht 170.2 cm; Wt 70.5 kg
[2020-05-05 09:22] VITALS: BP 131/65
[2020-05-05] MEDS ORDERED: LORazepam 2 MG/ML, 1ML ONE (09:55)
[2020-05-05] MEDS ORDERED: KETOROLAC 30 MG/1 ML ONE (09:55)
[2020-05-05] MEDS ORDERED: SODIUM CHLORIDE FLUSH 10ML SYR IVF ONE (10:00)
[2020-05-05] MEDS ORDERED: LORazepam 2 MG/ML, 1ML IVPush ONE (10:00)
[2020-05-05] MEDS ORDERED: KETOROLAC 30 MG/1 ML IVPush ONE (10:00)
[2020-05-05 10:12] LABS: BASOPHILS % (AUTO) 0 % (0-1); EOSINOPHILS % (AUTO) 1 % (1-7); LYMPHOCYTES % (AUTO) 24 % (22-44); MEAN PLATELET VOLUME 6.5 fL (7.4-10.4); MONOCYTES % (AUTO) 10 % (2-9); NEUTROPHILS % (AUTO) 64 % (42-75); PLATELET COUNT 661 x10^3/uL (130-400); RED BLOOD COUNT 3.29 x10^6/uL (4.38-5.82); RED CELL DISTRIBUTION WIDTH 18.5 % (9.4-14.8)
[2020-05-05 10:16] LABS: MD NO
[2020-05-05 10:21] LABS: ALANINE AMINOTRANSFERASE 14 U/L (12-78); ALBUMIN 3.4 g/dL (3.4-5.0); ANION GAP 9 mmol/L (5-15); CHLORIDE 108 mmol/L (98-107)
[2020-05-05 10:25] LABS: ALKALINE PHOSPHATASE 82 U/L (45-117); BILIRUBIN,TOTAL 0.3 mg/dL (0.2-1.0); TOTAL PROTEIN 7.3 g/dL (6.4-8.2)
== END 2020-05-05 11:30 | disposition home or self-care (01) ==
LOC: ED 09:51
DX: L03.115 Cellulitis of right lower limb (principal); M25.571 Pain in right ankle and joints of right foot; R60.0 Localized edema; I25.2 Old myocardial infarction; J44.9 Chronic obstructive pulmonary disease, unspecified; F17.210 Nicotine dependence, cigarettes, uncomplicated
CPT/HCPCS: 36415; 73564; 80053; 83880; 85025; 93971; 96374; 96375; 99285; J1885; J2060

== ENCOUNTER 2020-06-25 04:17 | Emergency (ER) | payer MEDICAID ==
[~2020-06-25] VITALS: Ht 172.7 cm; Wt 66.2 kg
--- NOTE | 2020-06-25 04:37 | NUR ---
PT WALKED INTO ED TODAY STATING, "I CAN BARELY WALK", MY LOW BACK AND LEGS ARE HURTING. PT MOVING AROUND ROOM WITH A SMOOTH GAIT UPON RN ENTERING ROOM. PT CMS INTACT, DENIES TRAUMA. NAD, BED IN LOWEST, RAILS ENGAGED, PLACED ON SPO2/BP MONITORING. WCTM. WAITING FOR ERP EVAL.
[2020-06-25] MEDS ORDERED: KETOROLAC 60 MG/2 ML ONE (04:48)
--- NOTE | 2020-06-25 04:59 | NUR ---
PT MEDICATED PER MAR FOR PAIN, NAD, RESTING ON GURNEY, BED IN LOWEST, RAILS ENGAGED, CALL LIGHT ON LAP, WCTM. WAITING FOR RADS
[2020-06-25] MEDS ORDERED: KETOROLAC 30 MG/1 ML IM ONE (05:00)
--- NOTE | 2020-06-25 06:07 | NUR ---
PT RESTING ON GURNEY, NAD, EYES CLOSED, EVEN AND UNLABORED RESPIRATIONS, APPEARS COMFORTABLE, BED IN LOWEST, RAILS ENGAGED, CALL LIGHT ON LAP, WCTM. CHART UP FOR RECHECK
[2020-06-25 06:36] VITALS: BP 108/66
--- NOTE | 2020-06-25 06:40 | NUR ---
PT GETTING DRESSED AT THIS TIME, BACK TO LAYING ON GURNEY, NAD, NO CHANGE IN CONDITION, CHART UP FOR RECHECK. WCTM.
--- NOTE | 2020-06-25 07:03 | NUR ---
BEDSIDE REPORT TO CAITLIN TAPIA, PT CARE TRANSFERRED AT THIS TIME.
[2020-06-25] MEDS ORDERED: ACETAMINOPHEN 500 MG TABLET ONE (07:09)
[2020-06-25] MEDS ORDERED: ACETAMINOPHEN 500 MG TABLET PO ONE (07:30)
== END 2020-06-25 07:16 | disposition home or self-care (01) ==
LOC: ED 04:50
DX: M79.661 Pain in right lower leg (principal); M79.662 Pain in left lower leg; M70.862 Other soft tissue disorders related to use, overuse and pressure, left lower leg; M70.861 Other soft tissue disorders related to use, overuse and pressure, right lower leg; Y93.89 Activity, other specified
CPT/HCPCS: 73564; 96372; 99283; J1885

== ENCOUNTER 2020-07-29 15:56 | Emergency (ER) | payer MEDICAID ==
[~2020-07-29] VITALS: Ht 172.7 cm; Wt 62.7 kg
[~2020-07-29 15:56] MED LIST changes: -CYCL-259 PO; +CYCL10TA2 PO; -FOLI-17 PO; +FOLI1TAB32 PO; -HYDR-3245 PO; +HYDR1TAB53 PO; -OXYC-307 PO; +OXYC-380 PO; -OXYC5TAB3 PO; +OXYC5TAB98 PO
--- NOTE | 2020-07-29 16:20 | NUR ---
per report, pt here for SI, has no plan
--- NOTE | 2020-07-29 16:24 | NUR ---
pt is homeless and [facility] go to [facility] or [facility] halfway FOOD TRADES ASSISTANTS per report pt is drowsy and uncooperative with assessment questions. pt ambulatory and no obvious injury. no apparent resp. distress. pt not answering questions about medical hx, when asked if he has allergies to medications, pt reports "lots" pt undressed and all belongings placed in bag, labeled and placed into locker room secured. sitter present for safety
--- NOTE | 2020-07-29 16:27 | NUR ---
Lincoln, psych VENEER TAPING MACHINE OPERATOR has been to bedside to attempt to assess pt, pt uncooperative
--- NOTE | 2020-07-29 16:30 | NUR ---
pt now states to Lincoln and to MANAN Llamas that he is not suicidal, that he is drunk and wants to [facility] to [facility] pt reports that he has been drinking ETOH today and that his last heroin use was 2 days ago
--- NOTE | 2020-07-29 17:06 | NUR ---
meal tray has been delivered pt sleeping, arousable
[2020-07-29] MEDS ORDERED: THIAMINE 100 MG/ML, 2ML IM ONE (17:30)
--- NOTE | 2020-07-29 17:56 | NUR ---
no changes. pt continues sleeping in position of comfort
--- NOTE | 2020-07-29 18:40 | NUR ---
pt slleping in position of comfort. no resp. distress. no family at bedside
--- NOTE | 2020-07-29 18:54 | NUR ---
no changes. pt resting. report to Katie TAPIA
--- NOTE | 2020-07-29 19:01 | NUR ---
REPORT RECIEVED FROM WILLIE VILLEGAS. PT SLEEPING IN [facility] AT THIS TIME, RESP EVEN/UNLABORED, SAFETY MEASURES IN PLACE. PLAN IS MTF TO [facility]
[2020-07-29] MEDS ORDERED: THIAMINE 100 MG/ML, 2ML ONE (19:25)
[2020-07-29 19:32] VITALS: BP 127/70
== END 2020-07-29 20:10 | disposition home or self-care (01) ==
LOC: ED 18:52
DX: F10.120 Alcohol abuse with intoxication, uncomplicated (principal); J44.9 Chronic obstructive pulmonary disease, unspecified; I25.2 Old myocardial infarction; Y90.9 Presence of alcohol in blood, level not specified
CPT/HCPCS: 96372; 99283; J3411

== ENCOUNTER 2020-07-30 00:12 | Emergency (ER) | payer MEDICAID ==
[~2020-07-30] VITALS: Ht 170.2 cm; Wt 64.0 kg
[2020-07-30 01:48] VITALS: BP 145/88
--- NOTE | 2020-07-30 01:49 | NUR ---
Pt dc'd with written and verbal instructions. Pt states he understands. Pt instructed to f/u with [facility]. Pt with stable VS. Pt home with all belongings. Pt ambulated out of ED without difficulty.
== END 2020-07-30 01:58 | disposition home or self-care (01) ==
LOC: ED 01:00
DX: F10.229 Alcohol dependence with intoxication, unspecified (principal); F17.210 Nicotine dependence, cigarettes, uncomplicated; J44.9 Chronic obstructive pulmonary disease, unspecified; I25.2 Old myocardial infarction; Z72.9 Problem related to lifestyle, unspecified; Y90.0 Blood alcohol level of less than 20 mg/100 ml
CPT/HCPCS: 99283; 99406

== ENCOUNTER 2020-08-09 16:30 | Emergency (ER) | payer MEDICAID ==
[~2020-08-09] VITALS: Ht 170.2 cm; Wt 81.8 kg
[2020-08-09 16:32] VITALS: BP 116/73
--- NOTE | 2020-08-09 16:52 | NUR ---
OPENING NOTE: BIB EMS FOR DETOX. PT STATES LAST DRINK WAS WHISKY AND THAT HE WANTS TO GO TO A DETOX CENTER. PT CONNECTED TO CONTINIOUS BP AND O2 MONIOR. FANNY.
[2020-08-09] MEDS ORDERED: ONDANSETRON ODT 4 MG PO ONE (17:30)
[2020-08-09] MEDS ORDERED: ONDANSETRON 2MG/ML, 2ML ONE (17:39)
[2020-08-09 17:40] LABS: BASOPHILS % (AUTO) 1 % (0-1); EOSINOPHILS % (AUTO) 0 % (1-7); LYMPHOCYTES % (AUTO) 24 % (22-44); MEAN CORPUSCULAR HEMOGLOBIN 29.4 pg (27.5-34.5); MEAN CORPUSCULAR HGB CONC 33.3 g/dL (33.2-36.2); MONOCYTES % (AUTO) 7 % (2-9); NEUTROPHILS % (AUTO) 69 % (42-75); PLATELET COUNT 415 x10^3/uL (130-400); RED BLOOD COUNT 4.33 x10^6/uL (4.38-5.82); RED CELL DISTRIBUTION WIDTH 17.4 % (9.4-14.8)
[2020-08-09] MEDS ORDERED: MORPHINE SULFATE 4 MG/ML, 1ML ONE (17:40)
[2020-08-09 17:41] LABS: MD NO
[2020-08-09] MEDS ORDERED: ONDANSETRON ODT 4 MG ONE (17:49)
[2020-08-09 17:50] LABS: ALBUMIN 3.4 g/dL (3.4-5.0); ANION GAP 10 mmol/L (5-15); CALCIUM 8.3 mg/dL (8.5-10.1); CHLORIDE 111 mmol/L (98-107); CREATININE 0.65 mg/dL (0.7-1.3)
--- NOTE | 2020-08-09 21:09 | NUR ---
PT DC WITH [facility]ADY [facility], GIVEN A CAB VOUCHER TO LOCATION OF HIS CHOICE, DENIES SI/HI.
== END 2020-08-09 21:11 | disposition home or self-care (01) ==
LOC: ED 16:45
DX: F10.220 Alcohol dependence with intoxication, uncomplicated (principal); J44.9 Chronic obstructive pulmonary disease, unspecified; I25.2 Old myocardial infarction; R11.0 Nausea; F17.200 Nicotine dependence, unspecified, uncomplicated; Y90.0 Blood alcohol level of less than 20 mg/100 ml
CPT/HCPCS: 36415; 80048; 80320; 82040; 85025; 99283; Q0162; G0480

== ENCOUNTER 2020-08-23 22:59 | Emergency (ER) | payer MEDICAID ==
[~2020-08-23] VITALS: Ht 170.2 cm; Wt 65.9 kg
--- NOTE | 2020-08-23 23:02 | NUR ---
THIS IS A 50Y M BIB EMS FOR CP/ N/V AND ALL OVER BODY ACHES. PT STS CP RADIATES TO CHEST. PER EMS PT GOT 4MG ZOFRAN BIOCHEMISTRY PROFESSOR. 20G LAC INTSERTED BIOCHEMISTRY PROFESSOR. PT RESTING ON GURNEY CONNECTED TO ALL MONITORING VSS.
--- NOTE | 2020-08-23 23:05 | NUR ---
ERP AT BEDSIDE
[2020-08-23] MEDS ORDERED: SODIUM CHLORIDE 0.9% 1,000ML IVBOLUS ONE (23:30)
[2020-08-23 23:53] LABS: BASOPHILS % (AUTO) 1 % (0-1); EOSINOPHILS % (AUTO) 1 % (1-7); LYMPHOCYTES % (AUTO) 22 % (22-44); MEAN CORPUSCULAR HEMOGLOBIN 30.6 pg (27.5-34.5); MEAN PLATELET VOLUME 7.4 fL (7.4-10.4); MONOCYTES % (AUTO) 8 % (2-9); NEUTROPHILS % (AUTO) 68 % (42-75); PLATELET COUNT 342 x10^3/uL (130-400); RED BLOOD COUNT 3.93 x10^6/uL (4.38-5.82); RED CELL DISTRIBUTION WIDTH 18.3 % (9.4-14.8)
[2020-08-23 23:55] LABS: MD NO
[2020-08-24 00:04] LABS: ALANINE AMINOTRANSFERASE 31 U/L (12-78); ANION GAP 11 mmol/L (5-15); CALCIUM 7.7 mg/dL (8.5-10.1); CHLORIDE 105 mmol/L (98-107); CREATININE 0.73 mg/dL (0.7-1.3)
[2020-08-24 00:09] LABS: ALKALINE PHOSPHATASE 90 U/L (45-117); BILIRUBIN,TOTAL 0.3 mg/dL (0.2-1.0); TOTAL PROTEIN 6.5 g/dL (6.4-8.2); TROPONIN I < 0.015 ng/mL (0.000-0.045)
[2020-08-24 00:20] VITALS: BP 114/66
--- NOTE | 2020-08-24 00:29 | NUR ---
ERP AT BEDSIDE FOR FURTHER EVAL
[2020-08-24] MEDS ORDERED: LORazepam 2 MG/ML, 1ML ONE (00:34)
[2020-08-24] MEDS ORDERED: KETOROLAC 30 MG/1 ML ONE (00:34)
[2020-08-24] MEDS ORDERED: ONDANSETRON 2MG/ML, 2ML ONE (00:34)
--- NOTE | 2020-08-24 00:40 | NUR ---
break rn. pt medicated per emar and given fresh socks
[2020-08-24] MEDS ORDERED: KETOROLAC 30 MG/1 ML IVPush ONE (01:00)
[2020-08-24] MEDS ORDERED: ONDANSETRON 2MG/ML, 2ML IVPush ONE (01:00)
[2020-08-24] MEDS ORDERED: LORazepam 2 MG/ML, 1ML IVPush ONE (01:00)
--- NOTE | 2020-08-24 01:02 | NUR ---
PT STATES FEELING BETTER. STEADY ON FEET. IV DC'D INTACT. TAXI VOUCHER GIVEN Patient/Caregiver given discharge instructions and they have confirmed that they understand the instructions. Patient ambulatory with steady gait.
== END 2020-08-24 01:04 | disposition home or self-care (01) ==
LOC: ED 08-24 00:45
DX: M79.10 Myalgia, unspecified site (principal); R11.2 Nausea with vomiting, unspecified; F10.139 Alcohol abuse with withdrawal, unspecified; R10.9 Unspecified abdominal pain; R51.9 Headache, unspecified; R00.0 Tachycardia, unspecified; R94.31 Abnormal electrocardiogram [ECG] [EKG]; J44.9 Chronic obstructive pulmonary disease, unspecified; F17.210 Nicotine dependence, cigarettes, uncomplicated; Z72.9 Problem related to lifestyle, unspecified; Y90.9 Presence of alcohol in blood, level not specified
CPT/HCPCS: 36415; 71045; 80053; 80320; 83690; 84484; 85025; 93005; 96361; 96374; 96375; 99285; 99406; J1885; J2060; J2405; J7030; G0480

== ENCOUNTER 2020-09-01 20:47 | Emergency (ER) | payer SELFPAY ==
[~2020-09-01] VITALS: Ht 170.2 cm; Wt 67.0 kg
[2020-09-01] MEDS ORDERED: ONDANSETRON ODT 4 MG ONE (21:48)
--- NOTE | 2020-09-01 21:55 | NUR ---
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 Pt says yes when asked about having a ZACARIAS, SOB, and CP. Pt with non-labored breathing. Pt appears in no distress. Pt on monitor. Warm blanket given. Will monitor. Upon DC, pt HR in 140's, and pt c/o nausea. Cecile ZEE made aware, and new order for EKG, zofran, and PO fluid. Will continue to monitor.
[2020-09-01] MEDS ORDERED: ONDANSETRON ODT 4 MG PO ONE (22:00)
--- NOTE | 2020-09-01 22:47 | NUR ---
Pt HR down to 100's, nausea resided. Provider states ok to DC patient. Patient/Caregiver given discharge instructions and they have confirmed that they understand the instructions. Patient ambulatory with steady gait. Pt [facility]
[2020-09-01 22:48] VITALS: BP 113/63
== END 2020-09-01 22:52 | disposition home or self-care (01) ==
LOC: ED 22:16
DX: F10.220 Alcohol dependence with intoxication, uncomplicated (principal); R00.0 Tachycardia, unspecified; J44.9 Chronic obstructive pulmonary disease, unspecified; I25.2 Old myocardial infarction; Y90.9 Presence of alcohol in blood, level not specified
CPT/HCPCS: 93005; 99283; Q0162

== ENCOUNTER 2020-09-04 07:57 | Emergency (ER) | payer MEDICAID ==
[~2020-09-04] VITALS: Ht 170.2 cm; Wt 66.0 kg
--- NOTE | 2020-09-04 08:05 | NUR ---
PT BIB EMS FOR ALCOHOL INTOXICATION. PT CALLED FOR AN AMBULANCE AFTER DRINKING TOO MUCH AND NOW HAVING N/V. PT ALERT TO HIMSELF, SITUATION, AND PLACE AND EASILY AROUSABLE WHEN ASKED QUESTIONS. PT DENIES ANY OTHER PHYSCIAL COMPLAINT.
--- NOTE | 2020-09-04 08:07 | NUR ---
PT GIVEN 4 MG ZOFRAN BY EMS LINE INSPECTOR. PT DENIES NAUSEA AT THIS TIME.
[2020-09-04] MEDS ORDERED: IBUPROFEN 600 MG TABLET PO ONE (08:30)
[2020-09-04] MEDS ORDERED: IBUPROFEN 600 MG TABLET ONE (08:32)
[2020-09-04 08:46] LABS: BASOPHILS % (AUTO) 1 % (0-1); EOSINOPHILS % (AUTO) 0 % (1-7); LYMPHOCYTES % (AUTO) 16 % (22-44); MEAN CORPUSCULAR HEMOGLOBIN 31.4 pg (27.5-34.5); MEAN PLATELET VOLUME 6.8 fL (7.4-10.4); MONOCYTES % (AUTO) 9 % (2-9); NEUTROPHILS % (AUTO) 74 % (42-75); PLATELET COUNT 447 x10^3/uL (130-400); RED BLOOD COUNT 4.16 x10^6/uL (4.38-5.82); RED CELL DISTRIBUTION WIDTH 19.4 % (9.4-14.8)
[2020-09-04 08:51] LABS: MD NO
[2020-09-04 08:52] LABS: ALANINE AMINOTRANSFERASE 35 U/L (12-78); ALBUMIN 4.1 g/dL (3.4-5.0); ANION GAP 11 mmol/L (5-15); CALCIUM 8.8 mg/dL (8.5-10.1); CHLORIDE 101 mmol/L (98-107); CREATININE 0.82 mg/dL (0.7-1.3)
[2020-09-04 08:54] LABS: ALKALINE PHOSPHATASE 108 U/L (45-117); BILIRUBIN,TOTAL 0.8 mg/dL (0.2-1.0); CREATINE KINASE, TOTAL 92 U/L (39-308); TOTAL PROTEIN 8.4 g/dL (6.4-8.2)
[2020-09-04] MEDS ORDERED: NEOSPORIN OINT. PKT 1 PACKET ONE (11:41)
[2020-09-04 11:44] VITALS: BP 110/78
== END 2020-09-04 12:26 | disposition home or self-care (01) ==
LOC: ED 08:06
DX: F10.129 Alcohol abuse with intoxication, unspecified (principal); Y90.0 Blood alcohol level of less than 20 mg/100 ml; R11.0 Nausea
CPT/HCPCS: 36415; 80053; 82550; 83690; 85025; 99285

== ENCOUNTER 2021-01-02 07:22 | Inpatient (IN) | payer MEDICAID ==
[~2021-01-02] VITALS: Ht 172.7 cm; Wt 64.2 kg
[2021-01-02] MEDS ORDERED: LORazepam 2 MG/ML, 1ML ONE ×4 (07:33→12:01)
[2021-01-02] MEDS: LORazepam 2 MG/ML, 1ML IVPush PRN ×4 (07:45→10:34)
--- NOTE | 2021-01-02 07:46 | NUR ---
biba from [facility], c/o ETOH detox with dizzy, nausea, tremors. per ems last drink around midnight. 200 cc NS and PO Zofran given by EMS STOREROOM ATTENDANT. pt presents tremulous but no active emesis, a&o, resps even and unlabored, cooperative. all monitors attached, sinus tach, erpa Mason at bedside for initial eval/assessment.
[2021-01-02] MEDS ORDERED: ONDANSETRON 2MG/ML, 2ML ONE (07:50)
[2021-01-02] MEDS ORDERED: ONDANSETRON 2MG/ML, 2ML IVPush ONE (08:00)
[2021-01-02] MEDS ORDERED: SODIUM CHLORIDE 0.9% 1,000ML IVBOLUS ONE ×2 (08:00→10:30)
[2021-01-02] MEDS ORDERED: THIAMINE 100MG TABLET PO ONE (08:00)
[2021-01-02 08:07] LABS: BASOPHILS % (AUTO) 1 % (0-1); EOSINOPHILS % (AUTO) 1 % (1-7); LYMPHOCYTES % (AUTO) 11 % (22-44); MEAN CORPUSCULAR HEMOGLOBIN 32.1 pg (27.5-34.5); MEAN PLATELET VOLUME 8.1 fL (7.4-10.4); MONOCYTES % (AUTO) 9 % (2-9); NEUTROPHILS % (AUTO) 78 % (42-75); PLATELET COUNT 185 x10^3/uL (130-400); RED CELL DISTRIBUTION WIDTH 16.4 % (9.4-14.8)
[2021-01-02 08:12] LABS: ALANINE AMINOTRANSFERASE 78 U/L (12-78); ALBUMIN 3.4 g/dL (3.4-5.0); ANION GAP 8 mmol/L (5-15); CALCIUM 8.1 mg/dL (8.5-10.1); CHLORIDE 105 mmol/L (98-107); CREATININE 0.63 mg/dL (0.7-1.3)
[2021-01-02 08:14] LABS: ALKALINE PHOSPHATASE 71 U/L (45-117); BILIRUBIN,TOTAL 1.2 mg/dL (0.2-1.0); TOTAL PROTEIN 6.4 g/dL (6.4-8.2)
--- NOTE | 2021-01-02 08:58 | NUR ---
pt sitting in bed, states after medication he is feeling much better. pt presents tremulous, a&o, resps even and unlabored, nadn. breakfast tray provided, PO tolerated well, no emesis noted.
[2021-01-02] MEDS ORDERED: IBUPROFEN 800 MG TABLET PO ONE (09:00)
[2021-01-02] MEDS ORDERED: IBUPROFEN 800 MG TABLET ONE (09:02)
[2021-01-02] MEDS ORDERED: THIAMINE 100MG TABLET ONE (09:02)
--- NOTE | 2021-01-02 09:30 | NUR ---
late entry for 929 d/t patient care: sherry mckeon had initially given dc instructions, notified by this RN that pt remains tremulous with arms extended following 3rd ativan admin. sherry instructed RN to administer 3rd liter ns, instructed RN to hold further ativan at this time.
--- NOTE | 2021-01-02 09:54 | NUR ---
EVELIN Eaton at bedside to discuss POC
--- NOTE | 2021-01-02 10:01 | NUR ---
preceptor RN note: pt requesting to go to bathroom for BM, pt assisted by WILLIE Costello and RESPIRATORY SUPERVISOR to bathroom, pt only requiring stand by assist. door cracked, RESPIRATORY SUPERVISOR waiting just outside doorway while pt had BM. after a few minutes, RESPIRATORY SUPERVISOR asked pt if he is ok, he replied "yes." RESPIRATORY SUPERVISOR states she then looked into bathroom and saw pt sitting on floor with head upright. this RN then assessed pt who stated he hit his head with fall, initially states he tripped, then stated his legs "gave out." pt denies syncope, denies loss of consiousness, denies dizziness before/after fall. pt assisted into bed, ambulatory with stand by assist. pt notes pain to right knee and head s/p fall. RESPIRATORY SUPERVISOR states she was standing immediately outside of doorway of bathroom for duration of event and did not hear any noise indicating that pt had fallen or struck himself on bathroom surface. EDMD Sahm and EDPA Mason notified. nurse discharge notified. head CT ordered. neuro assessments and vs assessment in place q15 min per policy.
--- NOTE | 2021-01-02 10:10 | NUR ---
PT TAKEN TO CT AT THIS TIME
--- NOTE | 2021-01-02 10:12 | NUR ---
LALIT Mason and KAYLIE borges'd additional dose ativan to be admin per emar order entered previously.
[2021-01-02] MEDS ORDERED: bp med PO (10:29)
[2021-01-02] MEDS ORDERED: BUSP10TA PO (10:29)
[2021-01-02] MEDS ORDERED: SODIUM CHLORIDE FLUSH 10ML SYR IVF PRN (10:30)
--- NOTE | 2021-01-02 10:40 | NUR ---
[facility] AT BEDSIDE FOR EVAL
--- NOTE | 2021-01-02 10:50 | NUR ---
hospitalist at bedside for admit assessment, hospitalist aware that pt was found down in bathroom, reporting fall. med rec completed, pt states he does not take any blood thinning medications. pharmacy called per fall policy to review pts meds. no orders received at this time.
[2021-01-02] MEDS ORDERED: ENOXAPARIN 40 MG/0.4 ML SQ SCH (11:00)
[2021-01-02] MEDS ORDERED: IBUPROFEN 600 MG TABLET PO PRN (11:00)
[2021-01-02] MEDS ORDERED: CHLORDIAZEPOXIDE 25 MG CAPSULE PO SCH ×2 (11:00)
[2021-01-02] MEDS ORDERED: DOCUSATE 100 MG CAPSULE PO PRN (11:00)
[2021-01-02] MEDS ORDERED: LIDODERM 5% PATCH TD PRN (11:00)
[2021-01-02] MEDS ORDERED: LORazepam 0.5MG TABLET PO PRN (11:00)
[2021-01-02] MEDS ORDERED: LORazepam 2 MG/ML, 1ML IV PRN ×3 (11:00)
[2021-01-02] MEDS ORDERED: ONDANSETRON ODT 4 MG PO PRN (11:00)
[2021-01-02] MEDS ORDERED: LABETALOL 5MG/ML, 20ML IVPush PRN (11:00)
[2021-01-02] MEDS ORDERED: LORazepam 1MG TABLET PO PRN ×4 (11:00)
[2021-01-02] MEDS ORDERED: ACETAMINOPHEN 325 MG TABLET PO PRN (11:00)
[2021-01-02] MEDS ORDERED: POLYETHYLENE GLYCOL 17 GM PACKET PO PRN (11:00)
--- NOTE | 2021-01-02 11:08 | NUR ---
report given to receiving delano Cruz
--- NOTE | 2021-01-02 11:21 | NUR ---
DORIE DERAS - Fall Risk Medications present and NOT receiving anticoagulants.
[2021-01-02 11:30] VITALS: BP 118/78
[2021-01-02] MEDS: LORazepam 2 MG/ML, 1ML IV PRN ×4 (12:05→17:26)
[2021-01-02] MEDS ORDERED: POTASSIUM CHLORIDE 20 MEQ TAB.ER.PRT PO ONE (12:29)
[2021-01-02] MEDS ORDERED: NICOTINE 14MG/24 HR PATCH.TD24 TD SCH (12:30)
[2021-01-02] MEDS: POTASSIUM CHLORIDE 20 MEQ in LACTATED RINGERS 1,000 ML IV SCH ×2 (14:09→22:35)
[2021-01-02 19:01] VITALS: BP 133/80
[2021-01-02] MEDS ORDERED: NICOTINE 21 MG/24 HR PATCH.TD24 ONE (22:00)
[2021-01-02] MEDS ORDERED: NICOTINE 21 MG/24 HR PATCH.TD24 TD SCH ×2 (22:00→22:30)
[2021-01-03 00:39] VITALS: BP 149/85
[2021-01-03] MEDS ORDERED: MULTIVITAMINS/MINERALS TABLET PO SCH (09:00)
[2021-01-03] MEDS ORDERED: FOLIC ACID 1 MG TABLET PO SCH (09:00)
[2021-01-04] MEDS ORDERED: THIAMINE 100 MG in DEXTROSE 5% 50 ML IVPB SCH (09:00)
== END 2021-01-03 04:49 | disposition left against medical advice (07) | DRG 641 ==
LOC: ED 09:15 → EDIP 10:02 → SUATTDRO 10:17 → 4WST 11:20
PROVIDERS: ADMIT Hospitalist; ATTEND Hospitalist
DX: E87.6 Hypokalemia (principal); F10.239 Alcohol dependence with withdrawal, unspecified; F17.210 Nicotine dependence, cigarettes, uncomplicated; F41.1 Generalized anxiety disorder; F41.8 Other specified anxiety disorders; I10 Essential (primary) hypertension; I25.2 Old myocardial infarction; J44.9 Chronic obstructive pulmonary disease, unspecified; M79.7 Fibromyalgia; S80.211A Abrasion, right knee, initial encounter; Z53.29 Procedure and treatment not carried out because of patient's decision for other reasons; X58.XXXA Exposure to other specified factors, initial encounter; Y93.89 Activity, other specified; Y92.89 Other specified places as the place of occurrence of the external cause; Y99.8 Other external cause status
CPT/HCPCS: 36415; 70450; 80053; 83735; 84100; 85025; 93005; 96361; 96374; G0378; J1650; J2405; J3480; J2060; J7030; J7120

== ENCOUNTER 2021-01-06 02:20 | Inpatient (IN) | payer MEDICAID ==
[~2021-01-06] VITALS: Ht 172.7 cm; Wt 69.1 kg
[~2021-01-06 02:20] MED LIST changes: +BUSP10TA PO; +bp med PO
[2021-01-06] MEDS ORDERED: PROMETHAZINE 25 MG/ML, 1ML IM ONE (02:30)
[2021-01-06] MEDS ORDERED: SODIUM CHLORIDE 0.9% 1,000ML IVBOLUS ONE (02:30)
[2021-01-06] MEDS ORDERED: LORazepam 2 MG/ML, 1ML IVPush PRN (02:30)
[2021-01-06] MEDS ORDERED: LORazepam 2 MG/ML, 1ML IVPush ONE (02:30)
[2021-01-06] MEDS ORDERED: MAGNESIUM SULFATE 1 GM, THIAMINE 100 MG, FOLIC ACID 1 MG, MVI ADULT 10 ML in SODIUM CHL... IV ONE (02:30)
[2021-01-06] MEDS ORDERED: SODIUM CHLORIDE FLUSH 10ML SYR IVF ONE (02:30)
[2021-01-06] MEDS ORDERED: PROMETHAZINE 25 MG/ML, 1ML ONE (02:40)
[2021-01-06] MEDS ORDERED: LORazepam 2 MG/ML, 1ML ONE ×2 (02:42→04:02)
[2021-01-06 02:45] LABS: BASOPHILS % (AUTO) 1 % (0-1); EOSINOPHILS % (AUTO) 1 % (1-7); LYMPHOCYTES % (AUTO) 13 % (22-44); MEAN CORPUSCULAR HEMOGLOBIN 32.4 pg (27.5-34.5); MEAN CORPUSCULAR HGB CONC 33.9 g/dL (33.2-36.2); MEAN PLATELET VOLUME 7.7 fL (7.4-10.4); MONOCYTES % (AUTO) 15 % (2-9); NEUTROPHILS % (AUTO) 71 % (42-75); PLATELET COUNT 182 x10^3/uL (130-400); RED BLOOD COUNT 4.13 x10^6/uL (4.38-5.82); RED CELL DISTRIBUTION WIDTH 16.1 % (9.4-14.8)
--- NOTE | 2021-01-06 02:49 | NUR ---
PT BIB [facility], PT IS DETOXING FOR ETOH, LAST DRINK WEDNESDAY, PT IN GOWN ON AND PLACED ON CONTINUOUS MONITORING. ERP AT BEDSIDE
[2021-01-06 02:57] LABS: ALANINE AMINOTRANSFERASE 65 U/L (12-78); ALBUMIN 3.1 g/dL (3.4-5.0); ANION GAP 8 mmol/L (5-15); CALCIUM 7.8 mg/dL (8.5-10.1); CHLORIDE 110 mmol/L (98-107); CREATININE 0.68 mg/dL (0.7-1.3)
[2021-01-06 02:59] LABS: ALKALINE PHOSPHATASE 78 U/L (45-117); BILIRUBIN,TOTAL 0.5 mg/dL (0.2-1.0); TOTAL PROTEIN 6.5 g/dL (6.4-8.2)
--- NOTE | 2021-01-06 03:20 | NUR ---
pt resting on gurney, denies needs at this time.
[2021-01-06] MEDS ORDERED: POTASSIUM CHLORIDE 20 MEQ TAB.ER.PRT ONE (03:26)
[2021-01-06] MEDS ORDERED: LORazepam 2 MG/ML, 1ML IV PRN ×3 (03:30)
[2021-01-06] MEDS ORDERED: POTASSIUM CHLORIDE 20 MEQ TAB.ER.PRT PO ONE (03:30)
[2021-01-06] MEDS ORDERED: ALUMINUM/MAG/SIMETHICONE 30 ML UDC PO PRN (03:30)
[2021-01-06] MEDS ORDERED: LORazepam 1MG TABLET PO PRN ×4 (03:30)
[2021-01-06] MEDS ORDERED: LORazepam 0.5MG TABLET PO PRN (03:30)
[2021-01-06] MEDS ORDERED: DOCUSATE 100 MG CAPSULE PO PRN (03:30)
[2021-01-06] MEDS ORDERED: FOLIC ACID 5 MG/ML IM ONE (03:30)
--- NOTE | 2021-01-06 04:10 | NUR ---
pt CIWA is 8, pt given 1 mg ativan
--- NOTE | 2021-01-06 04:27 | NUR ---
Pt to be admitted to [facility], room 508-2. Report called to WILLIE Becker.
[2021-01-06] MEDS ORDERED: FOLIC ACID 1 MG TABLET PO ONE (05:00)
[2021-01-06 05:21] VITALS: BP 123/77
[2021-01-06] MEDS: ENOXAPARIN 40 MG/0.4 ML SQ SCH (05:47)
[2021-01-06] MEDS: DIAZEPAM 10 MG TABLET PO SCH ×4 (05:47→21:05)
[2021-01-06] MEDS: ACETAMINOPHEN 500 MG TABLET PO SCH ×2 (05:47→07:30)
[2021-01-06 07:07] VITALS: BP 143/76
[2021-01-06] MEDS ORDERED: ACETAMINOPHEN 500 MG TABLET PO SCH (09:30)
[2021-01-06] MEDS: MULTIVITAMINS/MINERALS TABLET PO SCH (09:36)
[2021-01-06] MEDS: BACLOFEN 10 MG TABLET PO SCH ×2 (09:36→21:04)
[2021-01-06] MEDS ORDERED: DIAZEPAM 5 MG TABLET ONE ×2 (09:38→14:58)
[2021-01-06 11:09] LABS: BASOPHILS % (AUTO) 1 % (0-1); EOSINOPHILS % (AUTO) 1 % (1-7); LYMPHOCYTES % (AUTO) 19 % (22-44); MEAN CORPUSCULAR HEMOGLOBIN 32.5 pg (27.5-34.5); MEAN CORPUSCULAR HGB CONC 33.9 g/dL (33.2-36.2); MEAN PLATELET VOLUME 8.1 fL (7.4-10.4); MONOCYTES % (AUTO) 10 % (2-9); NEUTROPHILS % (AUTO) 69 % (42-75); PLATELET COUNT 165 x10^3/uL (130-400); RED BLOOD COUNT 3.67 x10^6/uL (4.38-5.82); RED CELL DISTRIBUTION WIDTH 15.8 % (9.4-14.8)
[2021-01-06 11:19] LABS: ANION GAP 4 mmol/L (5-15); CALCIUM 7.6 mg/dL (8.5-10.1); CHLORIDE 110 mmol/L (98-107); CREATININE 0.67 mg/dL (0.7-1.3)
[2021-01-06] MEDS: POTASSIUM CHLORIDE 20 MEQ, MAGNESIUM SULFATE 1 GM, FOLIC ACID 1 MG, THIAMINE 200 MG, MV... IV SCH (12:07)
[2021-01-06 13:28] VITALS: BP 156/78
[2021-01-06] MEDS ORDERED: ACETAMINOPHEN 650 MG SUPP PR PRN (18:00)
[2021-01-06] MEDS: KETOROLAC 30 MG/1 ML IVPush PRN (18:34)
[2021-01-06 20:58] VITALS: BP 155/81
[2021-01-07 01:15] VITALS: BP 159/85
[2021-01-07] MEDS: ONDANSETRON 2MG/ML, 2ML IV PRN (01:25)
[2021-01-07] MEDS: DIAZEPAM 10 MG TABLET PO SCH ×4 (04:28→20:29)
[2021-01-07] MEDS: ENOXAPARIN 40 MG/0.4 ML SQ SCH (04:28)
[2021-01-07 04:53] LABS: BASOPHILS % (AUTO) 1 % (0-1); EOSINOPHILS % (AUTO) 2 % (1-7); LYMPHOCYTES % (AUTO) 17 % (22-44); MEAN CORPUSCULAR HEMOGLOBIN 32.9 pg (27.5-34.5); MEAN CORPUSCULAR HGB CONC 34.5 g/dL (33.2-36.2); MEAN PLATELET VOLUME 8.1 fL (7.4-10.4); MONOCYTES % (AUTO) 14 % (2-9); NEUTROPHILS % (AUTO) 66 % (42-75); PLATELET COUNT 177 x10^3/uL (130-400); RED CELL DISTRIBUTION WIDTH 15.8 % (9.4-14.8)
[2021-01-07 05:02] LABS: ALANINE AMINOTRANSFERASE 49 U/L (12-78); ANION GAP 5 mmol/L (5-15); CHLORIDE 109 mmol/L (98-107); CREATININE 0.62 mg/dL (0.7-1.3)
[2021-01-07 05:04] LABS: ALKALINE PHOSPHATASE 73 U/L (45-117); BILIRUBIN,TOTAL 0.8 mg/dL (0.2-1.0); TOTAL PROTEIN 6.1 g/dL (6.4-8.2)
[2021-01-07 08:30] VITALS: BP 139/83
[2021-01-07] MEDS: MULTIVITAMINS/MINERALS TABLET PO SCH (09:31)
[2021-01-07] MEDS: BACLOFEN 10 MG TABLET PO SCH ×2 (09:31→20:29)
[2021-01-07] MEDS: KETOROLAC 30 MG/1 ML IVPush PRN (13:13)
[2021-01-07] MEDS: POTASSIUM CHLORIDE 20 MEQ, MAGNESIUM SULFATE 1 GM, FOLIC ACID 1 MG, THIAMINE 200 MG, MV... IV SCH (13:20)
[2021-01-07 13:53] VITALS: BP 138/78
[2021-01-07] MEDS: GABAPENTIN 100 MG CAPSULE PO SCH ×2 (17:39→20:29)
[2021-01-07] MEDS: DIVALPROEX 125 MG CAP.SPRINK PO SCH (17:39)
[2021-01-07 18:44] VITALS: BP 133/85
[2021-01-07] MEDS ORDERED: DIAZEPAM 5 MG TABLET ONE (20:24)
[2021-01-07] MEDS: LORazepam 2 MG/ML, 1ML IV PRN (22:55)
[2021-01-08 01:10] VITALS: BP 125/77
[2021-01-08] MEDS: DIVALPROEX 125 MG CAP.SPRINK PO SCH ×3 (01:35→17:12)
[2021-01-08] MEDS ORDERED: DIAZEPAM 5 MG TABLET ONE (05:33)
[2021-01-08] MEDS: DIAZEPAM 10 MG TABLET PO SCH ×4 (05:36→23:14)
[2021-01-08] MEDS: ENOXAPARIN 40 MG/0.4 ML SQ SCH (05:36)
[2021-01-08 06:39] VITALS: BP 117/71
[2021-01-08] MEDS: MULTIVITAMINS/MINERALS TABLET PO SCH (09:07)
[2021-01-08] MEDS: GABAPENTIN 100 MG CAPSULE PO SCH ×3 (09:07→20:57)
[2021-01-08] MEDS: BACLOFEN 10 MG TABLET PO SCH ×2 (09:07→20:57)
[2021-01-08] MEDS: LORazepam 2 MG/ML, 1ML IV PRN ×3 (09:17→21:18)
[2021-01-08 12:08] VITALS: BP 125/77
[2021-01-08 19:33] VITALS: BP 130/77
[2021-01-09 00:44] VITALS: BP 130/82
[2021-01-09] MEDS: DIVALPROEX 125 MG CAP.SPRINK PO SCH ×3 (01:40→17:48)
[2021-01-09] MEDS: ENOXAPARIN 40 MG/0.4 ML SQ SCH (05:40)
[2021-01-09] MEDS: LORazepam 2 MG/ML, 1ML IV PRN ×3 (05:49→12:43)
[2021-01-09 07:21] VITALS: BP 107/71
[2021-01-09] MEDS: MULTIVITAMINS/MINERALS TABLET PO SCH (09:00)
[2021-01-09] MEDS: GABAPENTIN 100 MG CAPSULE PO SCH ×2 (09:14→17:48)
[2021-01-09] MEDS: BACLOFEN 10 MG TABLET PO SCH (09:15)
[2021-01-09] MEDS: ONDANSETRON 2MG/ML, 2ML IV PRN (09:16)
[2021-01-09 12:56] VITALS: BP 132/85
[2021-01-09] MEDS: KETOROLAC 30 MG/1 ML IVPush PRN (14:10)
[2021-01-09] MEDS ORDERED: CHLO25CA9 PO (14:21)
[2021-01-09] MEDS ORDERED: MULT-484 PO (14:21)
== END 2021-01-09 17:53 | disposition home or self-care (01) | DRG 392 ==
LOC: ED 03:00 → EDIP 03:46 → 5SO 04:46 → 3N 01-08 18:39
PROVIDERS: ADMIT Internal Medicine; ATTEND Internal Medicine
DX: K29.20 Alcoholic gastritis without bleeding (principal); F10.239 Alcohol dependence with withdrawal, unspecified; E44.1 Mild protein-calorie malnutrition; E87.6 Hypokalemia; F17.210 Nicotine dependence, cigarettes, uncomplicated; F41.9 Anxiety disorder, unspecified; K21.9 Gastro-esophageal reflux disease without esophagitis; F10.229 Alcohol dependence with intoxication, unspecified; M79.606 Pain in leg, unspecified; R51.9 Headache, unspecified; Z82.49 Family history of ischemic heart disease and other diseases of the circulatory system; Z80.8 Family history of malignant neoplasm of other organs or systems; Z68.23 Body mass index [BMI] 23.0-23.9, adult
CPT/HCPCS: 36415; 99285; J7121; 80048; 80053; 80320; 83690; 83735; 84100; 85025; 93005; G0378; J1650; J1885; J2405; J2550; J3411; J3475; J3480; G0480; J2060; J7030

== ENCOUNTER 2021-01-25 14:04 | Emergency (ER) | payer MEDICAID ==
[~2021-01-25] VITALS: Ht 172.7 cm; Wt 65.0 kg
[2021-01-25 14:27] VITALS: BP 124/72
[2021-01-25 14:56] LABS: BASOPHILS % (AUTO) 1 % (0-1); EOSINOPHILS % (AUTO) 2 % (1-7); LYMPHOCYTES % (AUTO) 22 % (22-44); MEAN CORPUSCULAR HEMOGLOBIN 33.2 pg (27.5-34.5); MEAN CORPUSCULAR HGB CONC 34.7 g/dL (33.2-36.2); MEAN PLATELET VOLUME 7.1 fL (7.4-10.4); MONOCYTES % (AUTO) 8 % (2-9); NEUTROPHILS % (AUTO) 66 % (42-75); PLATELET COUNT 387 x10^3/uL (130-400); RED CELL DISTRIBUTION WIDTH 16.3 % (9.4-14.8)
--- NOTE | 2021-01-25 15:00 | NUR ---
PT MIHAELA FROM [facility]. PER EMS PT HAD SOB 6 HOURS AGO. PT NOW STATING NO SOB, BUT THAT HIS NECK HURTS. PT REPORTS DRINKING 7 "HURRICANES" EARLIER TODAY. PT RESTING IN [facility] IN PLACE, FANNY AT THIS TIME, [facility].
[2021-01-25 15:04] LABS: ALANINE AMINOTRANSFERASE 23 U/L (12-78); ALBUMIN 3.4 g/dL (3.4-5.0); ANION GAP 8 mmol/L (5-15); CHLORIDE 114 mmol/L (98-107); CREATININE 0.61 mg/dL (0.7-1.3)
[2021-01-25 15:07] LABS: ALKALINE PHOSPHATASE 72 U/L (45-117); BILIRUBIN,TOTAL 0.2 mg/dL (0.2-1.0); TOTAL PROTEIN 6.8 g/dL (6.4-8.2)
[2021-01-25] MEDS ORDERED: KETOROLAC 60 MG/2 ML ONE (15:59)
[2021-01-25] MEDS ORDERED: ONDANSETRON ODT 4 MG ONE (15:59)
[2021-01-25] MEDS ORDERED: KETOROLAC 60 MG/2 ML IM ONE (17:00)
[2021-01-25] MEDS ORDERED: ONDANSETRON ODT 4 MG PO ONE (17:00)
== END 2021-01-25 16:15 | disposition home or self-care (01) ==
LOC: ED 14:28
DX: S16.1XXA Strain of muscle, fascia and tendon at neck level, initial encounter (principal); F10.220 Alcohol dependence with intoxication, uncomplicated; I25.2 Old myocardial infarction; J44.9 Chronic obstructive pulmonary disease, unspecified; F17.200 Nicotine dependence, unspecified, uncomplicated; X58.XXXA Exposure to other specified factors, initial encounter; Y93.89 Activity, other specified; Y92.89 Other specified places as the place of occurrence of the external cause; Y99.8 Other external cause status
CPT/HCPCS: 36415; 72050; 80053; 85025; 96372; 99284; J1885; Q0162

== ENCOUNTER 2021-03-04 21:27 | Emergency (ER) | payer MEDICAID ==
[~2021-03-04] VITALS: Ht 172.7 cm; Wt 77.3 kg
[~2021-03-04 21:27] MED LIST changes: -LISI2.5T PO; +LISI2.5T12 PO; -OXYC-380 PO; +OXYC-501 PO
--- NOTE | 2021-03-04 23:44 | NUR ---
pt to room from wall (from [facility])
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
[2021-03-05] MEDS ORDERED: THIAMINE 100 MG in SODIUM CHLORIDE 0.9% 50 ML IVPB ONE
[2021-03-05] MEDS ORDERED: SODIUM CHLORIDE FLUSH 10ML SYR IVF ONE
[2021-03-05] MEDS ORDERED: LORazepam 2 MG/ML, 1ML IVPush ONE
[2021-03-05] MEDS ORDERED: SODIUM CHLORIDE 0.9% 1,000ML IVBOLUS ONE
[2021-03-05] MEDS ORDERED: LORazepam 2 MG/ML, 1ML IVPush PRN
[2021-03-05] MEDS ORDERED: ONDANSETRON 2MG/ML, 2ML IVPush ONE
[2021-03-05] MEDS ORDERED: THIAMINE 100 MG/ML, 2ML ONE (00:02)
[2021-03-05] MEDS ORDERED: LORazepam 2 MG/ML, 1ML ONE ×2 (00:03→00:30)
[2021-03-05 00:22] LABS: BASOPHILS % (AUTO) 1 % (0-1); EOSINOPHILS % (AUTO) 1 % (1-7); LYMPHOCYTES % (AUTO) 13 % (22-44); MEAN CORPUSCULAR HEMOGLOBIN 32.7 pg (27.5-34.5); MEAN CORPUSCULAR HGB CONC 34.3 g/dL (33.2-36.2); MEAN PLATELET VOLUME 7.3 fL (7.4-10.4); MONOCYTES % (AUTO) 9 % (2-9); NEUTROPHILS % (AUTO) 77 % (42-75); PLATELET COUNT 267 x10^3/uL (130-400); RED CELL DISTRIBUTION WIDTH 14.7 % (9.4-14.8)
[2021-03-05] MEDS ORDERED: ONDANSETRON 2MG/ML, 2ML ONE (00:30)
[2021-03-05 00:34] LABS: ALANINE AMINOTRANSFERASE 27 U/L (12-78); ALBUMIN 3.7 g/dL (3.4-5.0); ANION GAP 10 mmol/L (5-15); CALCIUM 8.7 mg/dL (8.5-10.1); CHLORIDE 97 mmol/L (98-107); CREATININE 0.76 mg/dL (0.7-1.3)
[2021-03-05 00:35] LABS: ALKALINE PHOSPHATASE 95 U/L (45-117); TOTAL PROTEIN 7.9 g/dL (6.4-8.2)
--- NOTE | 2021-03-05 01:00 | NUR ---
Patient is resting comfortably in bed. Bed in lowest, rails engaged, call light on lap. eyes closed, even and unlabored respirations, WCTM.
[2021-03-05 02:06] VITALS: BP 111/72
--- NOTE | 2021-03-05 02:07 | NUR ---
Patient given discharge instructions and they have confirmed that they understand the instructions. Patient ambulatory with steady gait. NAD, all questions answered appropriately, denies additional needs at this time. No personal belongings left in room after discharge.
== END 2021-03-05 02:08 | disposition home or self-care (01) ==
LOC: ED 21:48
DX: F10.239 Alcohol dependence with withdrawal, unspecified (principal); R44.1 Visual hallucinations; R10.84 Generalized abdominal pain; Y90.0 Blood alcohol level of less than 20 mg/100 ml; Z72.9 Problem related to lifestyle, unspecified; R00.0 Tachycardia, unspecified; I25.2 Old myocardial infarction
CPT/HCPCS: 36415; 80053; 80320; 83690; 85025; 96365; 96375; 99284; J2060; J2405; J3411; J7030; G0480